=== PATIENT | male | born 1935 | race Caucasian/White ===

== ENCOUNTER 2017-09-22 20:06 | Emergency (ER) | payer SELFPAY ==
[~2017-09-22] VITALS: Ht 177.8 cm; Wt 102.1 kg
[~2017-09-22 20:06] MED LIST: .; AUGMENTIN 875875 MG PO; B12,B-12,B 12500 MC1 PO; BACTRIM 400 MG-1 TAB PO; BACTRIM DS 8001 TA1 PO; BACTRIM DS 8001 TAB PO; BLOOD PRESSURE MED; CIPRO500 MG PO; CIPROFLOXACIN500 MG PO; CLINDAMYCIN300 MG PO; COUMADIN2.5 MG PO; FLOMAX0.4 MG PO; FOLIC ACID1 MG PO; K-DUR 20MEQ20 MEQ PO; KEFLEX500 MG PO; LACTINEX 0.2 MG1 TAB PO; LASIX20 MG PO; LEVAQUIN250 MG PO; LEVOFLOXACIN500 MG PO; LIDEX 0.05% GEL60 GM PO; LIPITOR20 MG PO; LISINOPRIL5 MG PO; LOPRESSOR25 MG PO; MACROBID100 M1 PO; MEDROL DOSEPAK4 MG PO; MYCOLOG CREAM 115 GM TP; NKHM; OYSTER CALCIUM1 TA2 PO; PROTONIX40 MG PO; TAMSULOSIN HYD0.4 MG PO; VICODIN 5/500 505 MG PO; VITAMIN D50000 I3; VOLTAREN GEL1% TP
[2017-09-22 20:12] VITALS: BP 127/64
[2017-09-22 20:21] LABS: BASO # 0.1 10*3/uL (0.0-0.1); BASO % 0.6 % (0.0-1.0); EOS # 0.2 10*3/uL (0.0-0.4); EOS % 1.9 % (1.0-4.0); HEMATOCRIT 46.5 % (42.0-52.0); HEMOGLOBIN 15.3 g/dl (14.0-18.0); LYMPH # 2.3 10*3/uL (1.3-4.4); LYMPH % 28.1 % (27.0-41.0); MEAN CELL VOLUME 95.5 fl (80.0-94.0); MEAN CORPUSCULAR HGB 31.4 pg (27.0-31.0); MEAN CORPUSCULAR HGB CONC 32.9 g/dl (33.0-37.0); MEAN PLATELET VOLUME 10.2 fl (9.6-12.3); MONO # 0.6 10*3/uL (0.1-1.0); MONO % 7.5 % (3.0-9.0); NEUT # 5.1 10*3/uL (2.3-7.9); NEUT % 61.8 % (47.0-73.0); PLATELET COUNT AUTOMATED 231 10*3/uL (130-400); RED BLOOD COUNT 4.87 10*6/uL (4.50-5.90); RED CELL DISTRI WIDTH 13.3 % (0-14.5); WHITE BLOOD COUNT 8.3 10*3/uL (4.8-10.8)
[2017-09-22 20:31] LABS: ACT PARTIAL THROMBO TIME 42.6 SECONDS (20.8-31.5); INTERNATIONAL NORM RATIO 4.1 (2.0-3.5)
[2017-09-22 20:35] LABS: BILIRUBIN 1+ (NEGATIVE); BLOOD 3+ (NEGATIVE); CLARITY TURBID (CLEAR); COLOR RED (YELLOW); GLUCOSE NEGATIVE (NEGATIVE); KETONE 1+ (NEGATIVE)
[2017-09-22 20:36] LABS: LEUKO ESTERASE 1+ (NEGATIVE); NITRITE POSITIVE (NEGATIVE)
[2017-09-22 20:37] LABS: RBC TNTC rbc/hpf (0-2)
[2017-09-22 20:37] LABS: CREATININE 1.39 mg/dL (0.70-1.30); POTASSIUM 4.2 mmol/L (3.5-5.1)
[2017-09-22] MEDS ORDERED: SEPTDS PO (20:43)
[2017-10-14] MEDS ORDERED: MIRALAX POWDER255 G1 PO (04:22)
== END 2017-09-22 21:10 | disposition home or self-care (01) ==
LOC: ED 20:06
PROVIDERS: Student in an Organized Health Care Education/Training Program
DX: N39.0 Urinary tract infection, site not specified (principal); R31.9 Hematuria, unspecified; Z79.899 Other long term (current) drug therapy; Z79.01 Long term (current) use of anticoagulants

== ENCOUNTER 2017-09-28 09:54 | Inpatient (IN) | payer MEDICARE, MEDICAID ==
[~2017-09-28] VITALS: Ht 177.8 cm; Wt 104.3 kg
--- NOTE | ~2017-09-28 | EKG ---
[place], [place] ELECTROCARDIOGRAM REPORT NAME: JOVANNA ROE UNIT #: [id number] ROOM: 409 DOCTOR: KALA DRAFT REPORT BIRTHDATE: [birth year] [facility] Test Date: 2017-09-29 Test Time: 17:58:42 Pat Name: JOVANNA ROE Department: Room: 409 1 Gender: M Tire Sorter: : 1935 Requested By: AUDREY RUBY Order Number: [id number] Reading MD: Ladarius Downey MD Measurements Intervals [place] Rate: 84 P: [place]: QRS: -47 QRSD: 112 T: 61 QT: 394 QTc: 466 Interpretive Statements Atrial fibrillation Left anterior fascicular block Abnormal R-wave progression, late transition Electronically Signed On 10-01-2017 9:28:55 PDT by Ladarius Downey MD CM:EKGRPT:ELECTROCARDIOGRAM REPORT [id number] AUDREY ARMENDARIZ DRAFT REPORT AUDREY RUBY
--- NOTE | ~2017-09-28 | O ---
[place], [place] OPERATIVE NOTE NAME: JOVANNA ROE UNIT #: [id number] ROOM: 409 DOCTOR: JOANIE GARCIAMARIE BIRTHDATE: [birth year] DOS: 10/02/2017 GASTROENDOSCOPIC REPORT An 81 years old patient who has presented with guaiac positivity, epigastric distress on Coumadin and there is concern as to the source of the pathology. PROCEDURE: Today's procedure part of investigation is panendoscopy plus biopsy. PREMEDICATION: Versed and propofol. SCOPE: Olympus forward-viewing gastroscope Q10 video. REPORT: After putting the patient in left lateral position and application of lubricant to the scope, the scope was introduced. Thereafter, under direct visualization, advanced through the length of esophagus. Diffuse ulceration of the esophagus up to cervical esophagus and up esophagogastric junction in intense 4/4+ ulceration diffusely was noticed. 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 [place] for fungal study was also obtained. Gastric pouch was entered. Large volume of bile in the gastric pouch suctioned out, about 400 mL. Duodenal bulb was entered. Large duodenal ulcer was identified as well as duodenitis. Distal esophagus was biopsied. [place] for fungal study obtained. Photographic series done. The patient extubated, tolerated procedure well. IMPRESSION: Intense esophageal ulcers from cervical esophagus to esophagogastric junction in addition to the upper esophageal moniliasis, status post photographic series. PLAN AND DISCUSSION: This patient requires aggressive ulcer therapy for prevention of his reflux. 1. Positioning of his bed, head of the bed to be elevated always at 30 degrees. 2. Slurry Carafate 2 grams 2 hours before meals and at bedtime. 3. Reglan 5 mg daily to improve his gastric emptying. 4. Protonix 40 mg b.i.d. 5. Gaviscon 1 tablet to be chewed on an hour after meals and supportive management. His esophagus in summary was extremely distressed and also the lumen was compromised because of ulcerations and esophageal moniliasis. Therefore, Diflucan 100 mg 2 tablets today and from tomorrow 1 tablet per day for 10 days and no refill is going to be considered to remedy the issues on hand. [place], [place] OPERATIVE NOTE NAME: JOVANNA ROE UNIT #: [id number] ROOM: [facility] DOCTOR: MARIE NAIR MD BIRTHDATE: [birth year] MARIE NAIR MD CM:OPRECORD:OPERATIVE NOTE [id number] MARIE NAIR MD 10/02/17 1437 interface
--- NOTE | ~2017-09-28 | CON ---
[place], [place] REPORT OF CONSULTATION NAME: JOVANNA ROE [facility] #: [id number] UNIT #: [id number] ROOM: 409 DOCTOR: PIERO NAIR MDLITTLE RIVERJOSE ALFREDO BIRTHDATE: [birth year] DOS: 10/02/2017 GASTRO ENDOSCOPIC CONSULTATION REPORT HISTORY OF PRESENT ILLNESS: This is an 81-years old patient who presented with multiple medical issues among, which has been GI bleed, hematemesis, urinary tract infection of greater than 100,000 Citrobacter freundii. A urinalysis, bacteria positive. CBC; white blood cell 9, H and H of 12 and 38, lactic acid 1.2. Comprehensive metabolic panel initially BUN and creatinine 55 and 1.9, dehydrated, was corrected to normal. BUN and creatinine 15 and 0.9 with GFR greater than 60. His CBC differential was followed apparently somewhere along the line, he became DNR. However, we were concerned. We needed to anticoagulative for a cardiac dysrhythmia history. PAST MEDICAL HISTORY: Atrial fibrillation, congestive heart failure, hyperlipidemia, hypertension, peripheral vascular disease, stasis dermatitis of lower extremities, BPH. SOCIAL HISTORY: Smoker, nonalcohol consumer. FAMILY HISTORY: Noncontributory. ALLERGIES: To no known medications. MEDICATIONS: Medication list has been reviewed including warfarin 2.5 mg daily. REVIEW OF SYSTEMS: HEENT: Denies double vision, blurred vision. RESPIRATORY: Denies acute shortness of breath. CARDIOVASCULAR: Denies acute chest pain. DIGESTIVE SYSTEM: Cross abdominal pain, not feeling well in her stomach. PHYSICAL EXAMINATION: VITAL SIGNS: Stable. HEENT: Head normocephalic, nontraumatic. Mouth and buccal mucosa benign, edentulous. NECK: Supple, no thyromegaly, no cervical lymphadenopathy. CHEST: Symmetric anatomy, equal expansion. LUNGS: Decreased breath sounds in general. No wheezes, no rhonchi. HEART: Atrial fibrillation without a rub or murmur. EXTREMITIES: Stasis dermatitis and 2+ pitting edema. NEUROLOGIC: Fully alert and oriented. Gastrointestinal bleed, epigastric distress concern about the esophageal status. Labs have been reviewed. Records have been reviewed. His sonogram of abdomen diffuse hepatic steatosis, no biliary dilation. IMPRESSION: Ruling out esophageal pathology, i.e., carcinoma, i.e., ulcers infection. [place], [place] REPORT OF CONSULTATION NAME: JOVANNA ROE UNIT #: [id number] ROOM: 409 DOCTOR: JOANIE GARCIA,MARIE BIRTHDATE: [birth year] PLAN AND DISCUSSION: We are going to organize an EGD for this gentleman. Other adjunctive diagnoses as outlined in past medical, surgical history. He is in need of Coumadin yet guaiac positivity and concerned and subxiphoid symptomatology. MARIE NAIR MD CM:CONSTR:REPORT OF CONSULTATION 1402 10/23/17 0708 interface
--- NOTE | ~2017-09-28 | PR ---
[place], [place] PROGRESS NOTE [id number] UN[facility] #: [id number] ROOM: 409 DOCTOR: LOURDES ARENAS DPM BIRTHDATE: [birth year] DOS: 09/30/2017 SUBJECTIVE: This patient is seen today for followup of some erythema in his legs. He was admitted for UTI. He also states that his toenails are long and uncomfortable. Denies any calf pain bilaterally. OBJECTIVE: Neurovascular status is unchanged. Pedal pulses are barely palpable. Skin temperature is warm. Skin is thin and shiny. Hair growth is decreased. Mild erythema noted in both lower extremities below the knee with some mild dermatitis. Negative Homans sign is noted. Superficial scaling of skin noted at the lower portion of the anterior legs with no serous drainage, no purulent drainage or malodor. Nails 1 through 5 bilaterally are elongated and thick, brittle and dystrophic with subungual debris present. No open areas noted on the toes. He does have a small area on his left heel without any signs of infection. ASSESSMENT: Onychomycosis 1 through 5 bilaterally with mild peripheral arterial disease and venous insufficiency, stasis dermatitis bilaterally. PLAN: Recommend continuing with the Lac-Hydrin lotion. Continue with compression with Jose wraps and Tubigrip. Manual debridement of mycotic nails 1 through 5 bilaterally in length and thickness to the level of the nail bed to reduce hazards such as infection. Continue with offloading boots for his heels to reduce risk of ulceration and reevaluate his legs tomorrow. Right now, they are stable. LOURDES ARENAS DPM CM:PNTRANS [id number] LOURDES ARENAS DPM 09/30/17 9364 interface
[~2017-09-28 09:54] MED LIST changes: +SEPTDS PO
[2017-09-28 09:55] VITALS: BP 110/59
[2017-09-28 10:47] LABS: BILIRUBIN NEGATIVE (NEGATIVE); BLOOD 1+ (NEGATIVE); COLOR YELLOW (YELLOW); GLUCOSE NEGATIVE (NEGATIVE); KETONE NEGATIVE (NEGATIVE); LEUKO ESTERASE 3+ (NEGATIVE); NITRITE NEGATIVE (NEGATIVE)
[2017-09-28 11:00] LABS: CLARITY SL CLOUDY (CLEAR)
[2017-09-28 11:01] LABS: BACTERIA 1+; WBC 31-40 wbc/hpf (0-5)
[2017-09-28 11:31] LABS: BASO % 0.2 % (0.0-1.0); HEMATOCRIT 38.4 % (42.0-52.0); HEMOGLOBIN 12.9 g/dl (14.0-18.0); LYMPH # 0.8 10*3/uL (1.3-4.4); LYMPH % 8.4 % (27.0-41.0); MEAN CELL VOLUME 92.8 fl (80.0-94.0); MEAN CORPUSCULAR HGB 31.2 pg (27.0-31.0); MEAN CORPUSCULAR HGB CONC 33.6 g/dl (33.0-37.0); MEAN PLATELET VOLUME 10.3 fl (9.6-12.3); MONO # 0.8 10*3/uL (0.1-1.0); MONO % 9.3 % (3.0-9.0); NEUT # 7.4 10*3/uL (2.3-7.9); NEUT % 81.8 % (47.0-73.0); PLATELET COUNT AUTOMATED 202 10*3/uL (130-400); RED BLOOD COUNT 4.14 10*6/uL (4.50-5.90); RED CELL DISTRI WIDTH 13.9 % (0-14.5); WHITE BLOOD COUNT 9.1 10*3/uL (4.8-10.8)
[2017-09-28 11:48] LABS: ALBUMIN 3.1 gm/dl (3.1-4.5); CREATININE 1.98 mg/dL (0.70-1.30); POTASSIUM 4.3 mmol/L (3.5-5.1)
[2017-09-28 12:49] VITALS: BP 98/58
[2017-09-28 13:08] VITALS: BP 107/50
[2017-09-28 14:48] LABS: INTERNATIONAL NORM RATIO 3.6 (2.0-3.5)
[2017-09-28 16:00] VITALS: BP 123/57
[2017-09-28 20:00] VITALS: BP 110/56
[2017-09-29] VITALS: BP 108/49
[2017-09-29 06:11] LABS: BASO % 0.1 % (0.0-1.0); EOS % 0.1 % (1.0-4.0); HEMATOCRIT 38.2 % (42.0-52.0); HEMOGLOBIN 12.5 g/dl (14.0-18.0); LYMPH % 10.7 % (27.0-41.0); MEAN CELL VOLUME 93.4 fl (80.0-94.0); MEAN CORPUSCULAR HGB 30.6 pg (27.0-31.0); MEAN CORPUSCULAR HGB CONC 32.7 g/dl (33.0-37.0); MEAN PLATELET VOLUME 10.2 fl (9.6-12.3); MONO # 0.9 10*3/uL (0.1-1.0); MONO % 9.6 % (3.0-9.0); NEUT % 79.2 % (47.0-73.0); PLATELET COUNT AUTOMATED 228 10*3/uL (130-400); RED BLOOD COUNT 4.09 10*6/uL (4.50-5.90); RED CELL DISTRI WIDTH 14.1 % (0-14.5); WHITE BLOOD COUNT 8.9 10*3/uL (4.8-10.8)
[2017-09-29 06:44] LABS: CHLORIDE 106 mmol/L (98-107); CHOLESTEROL 78 mg/dL (<200); CREATININE 1.37 mg/dL (0.70-1.30); HDL CHOLESTEROL 26 mg/dl (40-60); LDL CHOLESTEROL 36 mg/dL (9-159); POTASSIUM 4.5 mmol/L (3.5-5.1); SODIUM 139 mmol/L (136-145); TRIGLYCERIDES 79 mg/dl (<150); VLDL CHOLESTEROL 16 mg/dL (6-40)
[2017-09-29 07:02] LABS: BUN 35 mg/dl (7-24)
[2017-09-29 07:17] LABS: ACT PARTIAL THROMBO TIME 36.6 SECONDS (20.8-31.5); INTERNATIONAL NORM RATIO 3.3 (2.0-3.5)
[2017-09-29 07:29] LABS: VITAMIN D, 25-HYDROXY 28.5 ng/mL (30-100)
[2017-09-29 08:00] VITALS: BP 154/74
[2017-09-29 12:00] VITALS: BP 156/64
[2017-09-29 16:00] VITALS: BP 144/68
[2017-09-29 17:00] LABS: BASO % 0.1 % (0.0-1.0); EOS % 0.1 % (1.0-4.0); HEMATOCRIT 41.5 % (42.0-52.0); HEMOGLOBIN 13.6 g/dl (14.0-18.0); LYMPH # 0.7 10*3/uL (1.3-4.4); LYMPH % 6.9 % (27.0-41.0); MEAN CELL VOLUME 94.5 fl (80.0-94.0); MEAN CORPUSCULAR HGB CONC 32.8 g/dl (33.0-37.0); MEAN PLATELET VOLUME 9.7 fl (9.6-12.3); MONO # 0.8 10*3/uL (0.1-1.0); MONO % 7.8 % (3.0-9.0); NEUT # 8.8 10*3/uL (2.3-7.9); NEUT % 84.6 % (47.0-73.0); PLATELET COUNT AUTOMATED 229 10*3/uL (130-400); RED BLOOD COUNT 4.39 10*6/uL (4.50-5.90); WHITE BLOOD COUNT 10.4 10*3/uL (4.8-10.8)
[2017-09-29 20:00] VITALS: BP 130/59
[2017-09-30] VITALS: BP 142/74
[2017-09-30 06:37] LABS: BASO % 0.1 % (0.0-1.0); EOS % 0.1 % (1.0-4.0); HEMOGLOBIN 12.9 g/dl (14.0-18.0); LYMPH # 0.9 10*3/uL (1.3-4.4); LYMPH % 9.4 % (27.0-41.0); MEAN CELL VOLUME 94.8 fl (80.0-94.0); MEAN CORPUSCULAR HGB 30.6 pg (27.0-31.0); MEAN CORPUSCULAR HGB CONC 32.3 g/dl (33.0-37.0); MEAN PLATELET VOLUME 9.8 fl (9.6-12.3); MONO % 9.7 % (3.0-9.0); NEUT # 7.9 10*3/uL (2.3-7.9); NEUT % 80.3 % (47.0-73.0); PLATELET COUNT AUTOMATED 273 10*3/uL (130-400); RED BLOOD COUNT 4.22 10*6/uL (4.50-5.90); RED CELL DISTRI WIDTH 14.1 % (0-14.5); WHITE BLOOD COUNT 9.9 10*3/uL (4.8-10.8)
[2017-09-30 06:49] LABS: BUN 27 mg/dl (7-24); CHLORIDE 109 mmol/L (98-107); POTASSIUM 4.5 mmol/L (3.5-5.1); SODIUM 143 mmol/L (136-145)
[2017-09-30 07:19] LABS: INTERNATIONAL NORM RATIO 1.8 (2.0-3.5)
[2017-09-30 08:00] VITALS: BP 130/58
[2017-09-30 12:00] VITALS: BP 104/60
[2017-09-30 14:30] LABS: BASO % 0.1 % (0.0-1.0); HEMATOCRIT 39.8 % (42.0-52.0); HEMOGLOBIN 13.1 g/dl (14.0-18.0); LYMPH # 1.1 10*3/uL (1.3-4.4); LYMPH % 12.4 % (27.0-41.0); MEAN CELL VOLUME 95.2 fl (80.0-94.0); MEAN CORPUSCULAR HGB 31.3 pg (27.0-31.0); MEAN CORPUSCULAR HGB CONC 32.9 g/dl (33.0-37.0); MONO # 0.7 10*3/uL (0.1-1.0); NEUT # 6.9 10*3/uL (2.3-7.9); NEUT % 78.9 % (47.0-73.0); PLATELET COUNT AUTOMATED 268 10*3/uL (130-400); RED BLOOD COUNT 4.18 10*6/uL (4.50-5.90); RED CELL DISTRI WIDTH 14.1 % (0-14.5); WHITE BLOOD COUNT 8.8 10*3/uL (4.8-10.8)
[2017-09-30 16:00] VITALS: BP 133/56
[2017-09-30 20:00] VITALS: BP 137/65
[2017-10-01] VITALS: BP 126/73
[2017-10-01 06:24] LABS: BASO % 0.3 % (0.0-1.0); HEMATOCRIT 38.3 % (42.0-52.0); HEMOGLOBIN 12.3 g/dl (14.0-18.0); LYMPH % 12.7 % (27.0-41.0); MEAN CELL VOLUME 96.2 fl (80.0-94.0); MEAN CORPUSCULAR HGB 30.9 pg (27.0-31.0); MEAN CORPUSCULAR HGB CONC 32.1 g/dl (33.0-37.0); MEAN PLATELET VOLUME 9.7 fl (9.6-12.3); MONO % 12.8 % (3.0-9.0); NEUT # 5.8 10*3/uL (2.3-7.9); NEUT % 73.6 % (47.0-73.0); PLATELET COUNT AUTOMATED 272 10*3/uL (130-400); RED BLOOD COUNT 3.98 10*6/uL (4.50-5.90); RED CELL DISTRI WIDTH 13.8 % (0-14.5); WHITE BLOOD COUNT 7.8 10*3/uL (4.8-10.8)
[2017-10-01 08:00] VITALS: BP 141/75
[2017-10-01 08:34] LABS: ALBUMIN 2.8 gm/dl (3.1-4.5); ALKALINE PHOSPHATASE 83 U/L (45-117); BUN 20 mg/dl (7-24); CHLORIDE 110 mmol/L (98-107); CREATININE 0.97 mg/dL (0.70-1.30); POTASSIUM 4.3 mmol/L (3.5-5.1); SGOT/AST 30 IU/L (3-35); SGPT/ALT 57 U/L (12-78); SODIUM 142 mmol/L (136-145); TOTAL PROTEIN 6.5 gm/dL (6.4-8.2)
[2017-10-01 12:00] VITALS: BP 138/63
[2017-10-01 16:00] VITALS: BP 139/54
[2017-10-01 20:00] VITALS: BP 120/55
[2017-10-02] VITALS: BP 122/75
[2017-10-02 06:15] LABS: BASO % 0.4 % (0.0-1.0); HEMATOCRIT 37.1 % (42.0-52.0); HEMOGLOBIN 12.2 g/dl (14.0-18.0); LYMPH % 13.2 % (27.0-41.0); MEAN CELL VOLUME 94.4 fl (80.0-94.0); MEAN CORPUSCULAR HGB CONC 32.9 g/dl (33.0-37.0); MEAN PLATELET VOLUME 9.2 fl (9.6-12.3); MONO # 0.9 10*3/uL (0.1-1.0); NEUT # 5.6 10*3/uL (2.3-7.9); NEUT % 73.4 % (47.0-73.0); PLATELET COUNT AUTOMATED 285 10*3/uL (130-400); RED BLOOD COUNT 3.93 10*6/uL (4.50-5.90); RED CELL DISTRI WIDTH 13.6 % (0-14.5); WHITE BLOOD COUNT 7.7 10*3/uL (4.8-10.8)
[2017-10-02 06:38] LABS: ALBUMIN 2.6 gm/dl (3.1-4.5); ALKALINE PHOSPHATASE 74 U/L (45-117); BUN 15 mg/dl (7-24); CHLORIDE 108 mmol/L (98-107); CREATININE 0.97 mg/dL (0.70-1.30); POTASSIUM 3.9 mmol/L (3.5-5.1); SGOT/AST 27 IU/L (3-35); SGPT/ALT 53 U/L (12-78); SODIUM 141 mmol/L (136-145); TOTAL PROTEIN 6.3 gm/dL (6.4-8.2)
[2017-10-02 08:00] VITALS: BP 142/78
[2017-10-02 12:30] VITALS: BP 151/65
[2017-10-02 13:50] VITALS: BP 112/55
[2017-10-02 14:05] VITALS: BP 123/68
[2017-10-02 14:20] VITALS: BP 113/69
[2017-10-02] MEDS ORDERED: PROTONIX40 MG PO (14:33)
[2017-10-02] MEDS ORDERED: VITAMIN D-32000 UNIT PO (14:33)
[2017-10-02] MEDS ORDERED: GERI-HYDROLAC222 ML T (14:33)
[2017-10-02] MEDS ORDERED: GAVISCON 80-141 EACH PO (14:33)
[2017-10-02] MEDS ORDERED: REGLAN5 MG PO (14:33)
[2017-10-02] MEDS ORDERED: FLOMAX0.4 MG PO (14:33)
[2017-10-02] MEDS ORDERED: FLUCONAZOLE100 MG PO (14:33)
[2017-10-02] MEDS ORDERED: CARAFATE1 GM/10 ML PO (14:33)
[2017-10-02] MEDS ORDERED: NATURE'S BLEND F1 MG PO (14:33)
[2017-10-02] MEDS ORDERED: CEFUROXIME AXE500 MG PO (14:35)
[2017-10-02] MEDS ORDERED: HYDROCODONE-AC1 EAC1 PO (14:36)
[2017-10-11 10:14] LABS: HEPATITIS B SURFACE AG Negative (Negative); HEPATITIS C VIRUS ANTIBODY <0.1 s/co (0.0-0.9)
[2017-10-14] MEDS ORDERED: MIRALAX POWDER255 G1 PO (04:22)
== END 2017-10-02 16:30 | disposition other institution (70) | DRG 689 ==
LOC: ED 09:54 → 4E 12:20 → EDHOLD 12:20 → 4E 12:29
PROVIDERS: Internal Medicine; Internal Medicine Gastroenterology; Nurse Practitioner Family; Registered Nurse
PROC: 0HBRXZZ Excision of Toe Nail, External Approach (ICD-10-PCS; principal; 2017-09-30)
PROC: 0DB38ZX Excision of Lower Esophagus, Via Natural or Artificial Opening Endoscopic, Diagnostic (ICD-10-PCS; 2017-10-02)
DX: N30.01 Acute cystitis with hematuria (principal); N17.0 Acute kidney failure with tubular necrosis; L89.322 Pressure ulcer of left buttock, stage 2; E44.0 Moderate protein-calorie malnutrition; B37.81 Candidal esophagitis; I11.0 Hypertensive heart disease with heart failure; I50.9 Heart failure, unspecified; E87.8 Other disorders of electrolyte and fluid balance, not elsewhere classified; E87.1 Hypo-osmolality and hyponatremia; K22.10 Ulcer of esophagus without bleeding; I48.2 Chronic atrial fibrillation; L89.611 Pressure ulcer of right heel, stage 1; E78.5 Hyperlipidemia, unspecified; I73.9 Peripheral vascular disease, unspecified; K29.80 Duodenitis without bleeding; K29.70 Gastritis, unspecified, without bleeding; M17.11 Unilateral primary osteoarthritis, right knee; N40.1 Benign prostatic hyperplasia with lower urinary tract symptoms; R33.8 Other retention of urine; L89.891 Pressure ulcer of other site, stage 1; Z66 Do not resuscitate; Z51.5 Encounter for palliative care; D64.9 Anemia, unspecified; R73.9 Hyperglycemia, unspecified; R74.0 Nonspecific elevation of levels of transaminase and lactic acid dehydrogenase [LDH]; I87.2 Venous insufficiency (chronic) (peripheral); B35.1 Tinea unguium; E66.9 Obesity, unspecified; Z72.0 Tobacco use; Z71.6 Tobacco abuse counseling; Z79.01 Long term (current) use of anticoagulants; Z83.6 Family history of other diseases of the respiratory system; Z80.9 Family history of malignant neoplasm, unspecified; Z79.899 Other long term (current) drug therapy; Z68.32 Body mass index [BMI] 32.0-32.9, adult

== ENCOUNTER → 2017-12-20 | Outpatient (CLI) | payer MEDICARE, MEDICAID ==
[~2017-12-20] MED LIST changes: +CARAFATE1 GM/10 ML PO; +CEFUROXIME AXE500 MG PO; +FLUCONAZOLE100 MG PO; +GAVISCON 80-141 EACH PO; +GERI-HYDROLAC222 ML T; +HYDROCODONE-AC1 EAC1 PO; +MIRALAX POWDER255 G1 PO; +NATURE'S BLEND F1 MG PO; +REGLAN5 MG PO; +VITAMIN D-32000 UNIT PO
== END | disposition home or self-care (01) ==
LOC: WOUNDCARE 12-19 13:49
DX: I87.311 Chronic venous hypertension (idiopathic) with ulcer of right lower extremity (principal); L97.811 Non-pressure chronic ulcer of other part of right lower leg limited to breakdown of skin; I73.9 Peripheral vascular disease, unspecified; I10 Essential (primary) hypertension; I48.91 Unspecified atrial fibrillation; J44.9 Chronic obstructive pulmonary disease, unspecified; E78.5 Hyperlipidemia, unspecified; M19.90 Unspecified osteoarthritis, unspecified site; F17.290 Nicotine dependence, other tobacco product, uncomplicated

== ENCOUNTER → 2018-01-01 | Outpatient (CLI) | payer MEDICARE, MEDICAID | END | disposition home or self-care (01) | LOC: US 13:12 | DX: I73.9 Peripheral vascular disease, unspecified (principal) ==

== ENCOUNTER → 2018-01-03 | Outpatient (CLI) | payer MEDICARE, MEDICAID | END | disposition home or self-care (01) | LOC: WOUNDCARE | DX: I87.311 Chronic venous hypertension (idiopathic) with ulcer of right lower extremity (principal); L97.811 Non-pressure chronic ulcer of other part of right lower leg limited to breakdown of skin; I73.9 Peripheral vascular disease, unspecified; I48.91 Unspecified atrial fibrillation; J44.9 Chronic obstructive pulmonary disease, unspecified; E78.5 Hyperlipidemia, unspecified; M19.90 Unspecified osteoarthritis, unspecified site; F17.290 Nicotine dependence, other tobacco product, uncomplicated ==

== ENCOUNTER 2018-01-20 10:27 | Emergency (ER) | payer MEDICARE, OTHER ==
[~2018-01-20] VITALS: Ht 177.8 cm; Wt 102.1 kg
[2018-01-20 10:29] VITALS: BP 147/55
[2018-01-20 11:55] LABS: BASO % 0.5 % (0.0-1.0); EOS # 0.2 10*3/uL (0.0-0.4); EOS % 1.9 % (1.0-4.0); HEMATOCRIT 40.8 % (42.0-52.0); HEMOGLOBIN 13.4 g/dl (14.0-18.0); LYMPH # 1.2 10*3/uL (1.3-4.4); LYMPH % 15.1 % (27.0-41.0); MEAN CELL VOLUME 94.2 fl (80.0-94.0); MEAN CORPUSCULAR HGB 30.9 pg (27.0-31.0); MEAN CORPUSCULAR HGB CONC 32.8 g/dl (33.0-37.0); MEAN PLATELET VOLUME 9.6 fl (9.6-12.3); MONO # 0.8 10*3/uL (0.1-1.0); MONO % 9.1 % (3.0-9.0); NEUT % 73.2 % (47.0-73.0); PLATELET COUNT AUTOMATED 240 10*3/uL (130-400); RED BLOOD COUNT 4.33 10*6/uL (4.50-5.90); RED CELL DISTRI WIDTH 16.1 % (0-14.5); WHITE BLOOD COUNT 8.2 10*3/uL (4.8-10.8)
[2018-01-20 12:03] LABS: ACT PARTIAL THROMBO TIME 28.4 SECONDS (20.8-31.5); INTERNATIONAL NORM RATIO 1.8 (2.0-3.5)
[2018-01-20 12:10] LABS: ALBUMIN 3.6 gm/dl (3.1-4.5); CREATININE 1.41 mg/dL (0.70-1.30); POTASSIUM 4.4 mmol/L (3.5-5.1)
[2018-01-20 12:46] LABS: BILIRUBIN NEGATIVE (NEGATIVE); BLOOD 3+ (NEGATIVE); CLARITY TURBID (CLEAR); COLOR YELLOW (YELLOW); GLUCOSE NEGATIVE (NEGATIVE); KETONE NEGATIVE (NEGATIVE); LEUKO ESTERASE 3+ (NEGATIVE); NITRITE NEGATIVE (NEGATIVE); PH >= 9.0 (5.0-9.0); SPECIFIC GRAVITY <= 1.005 (1.005-1.030); UROBILINOGEN 0.2 E.U./dl (0.2-1.0)
[2018-01-20 13:29] LABS: BACTERIA 3+; EPITHELIAL CELLS 0-2
[2018-01-20 13:30] LABS: TRIP PHOS CRYSTALS 3+
== END 2018-01-20 14:05 | disposition home or self-care (01) ==
LOC: ED 10:27
PROVIDERS: Emergency Medicine
DX: T83.038D Leakage of other urinary catheter, subsequent encounter (principal); I11.0 Hypertensive heart disease with heart failure; I50.9 Heart failure, unspecified; I48.2 Chronic atrial fibrillation; E78.5 Hyperlipidemia, unspecified; E66.9 Obesity, unspecified; I73.9 Peripheral vascular disease, unspecified; Z68.30 Body mass index [BMI] 30.0-30.9, adult; F17.200 Nicotine dependence, unspecified, uncomplicated; Z79.899 Other long term (current) drug therapy

== ENCOUNTER 2018-02-05 14:45 | Emergency (ER) | payer MEDICARE, OTHER ==
[~2018-02-05] VITALS: Ht 177.8 cm; Wt 102.1 kg
[2018-02-05 14:47] VITALS: BP 133/58
== END 2018-02-05 15:24 | disposition home or self-care (01) ==
LOC: ED 14:45
DX: T83.098A Other mechanical complication of other urinary catheter, initial encounter (principal); I11.0 Hypertensive heart disease with heart failure; I50.9 Heart failure, unspecified; E78.5 Hyperlipidemia, unspecified; E66.9 Obesity, unspecified; I48.2 Chronic atrial fibrillation; Z68.34 Body mass index [BMI] 34.0-34.9, adult; Z79.899 Other long term (current) drug therapy

== ENCOUNTER → 2018-02-11 | Outpatient (CLI) | payer MEDICARE, OTHER | END | disposition home or self-care (01) | LOC: WOUNDCARE 01:25 | DX: I87.311 Chronic venous hypertension (idiopathic) with ulcer of right lower extremity (principal); L97.811 Non-pressure chronic ulcer of other part of right lower leg limited to breakdown of skin; I73.9 Peripheral vascular disease, unspecified; I48.91 Unspecified atrial fibrillation; E78.5 Hyperlipidemia, unspecified; J44.9 Chronic obstructive pulmonary disease, unspecified; M19.90 Unspecified osteoarthritis, unspecified site; F17.290 Nicotine dependence, other tobacco product, uncomplicated ==

== ENCOUNTER → 2018-02-18 | Outpatient (CLI) | payer MEDICARE, OTHER | END | disposition home or self-care (01) | LOC: WOUNDCARE 04:26 | DX: I87.311 Chronic venous hypertension (idiopathic) with ulcer of right lower extremity (principal); L97.811 Non-pressure chronic ulcer of other part of right lower leg limited to breakdown of skin; I73.9 Peripheral vascular disease, unspecified; I48.91 Unspecified atrial fibrillation; J44.9 Chronic obstructive pulmonary disease, unspecified; E78.5 Hyperlipidemia, unspecified; M19.90 Unspecified osteoarthritis, unspecified site; F17.290 Nicotine dependence, other tobacco product, uncomplicated ==

== ENCOUNTER 2018-02-21 16:56 | Emergency (ER) | payer MEDICARE, OTHER ==
[~2018-02-21] VITALS: Ht 177.8 cm; Wt 102.1 kg
== END 2018-02-21 18:10 | disposition home or self-care (01) ==
LOC: ED 16:56
DX: T83.038A Leakage of other urinary catheter, initial encounter (principal); I48.2 Chronic atrial fibrillation; E78.5 Hyperlipidemia, unspecified; E66.9 Obesity, unspecified; I11.0 Hypertensive heart disease with heart failure; I50.9 Heart failure, unspecified; F17.200 Nicotine dependence, unspecified, uncomplicated; Z68.30 Body mass index [BMI] 30.0-30.9, adult; Z79.2 Long term (current) use of antibiotics; Z79.899 Other long term (current) drug therapy

== ENCOUNTER → 2018-02-25 | Outpatient (CLI) | payer MEDICARE, OTHER | END | disposition home or self-care (01) | LOC: WOUNDCARE 03:19 | DX: I87.311 Chronic venous hypertension (idiopathic) with ulcer of right lower extremity (principal); L97.811 Non-pressure chronic ulcer of other part of right lower leg limited to breakdown of skin; I73.9 Peripheral vascular disease, unspecified; I48.91 Unspecified atrial fibrillation; J44.9 Chronic obstructive pulmonary disease, unspecified; E78.5 Hyperlipidemia, unspecified; M19.90 Unspecified osteoarthritis, unspecified site; F17.290 Nicotine dependence, other tobacco product, uncomplicated ==

== ENCOUNTER 2018-03-15 14:11 | Emergency (ER) | payer MEDICARE, OTHER ==
[~2018-03-15] VITALS: Ht 177.8 cm; Wt 102.1 kg
[2018-03-15 14:14] VITALS: BP 142/78
[2018-03-15 15:16] LABS: BILIRUBIN NEGATIVE (NEGATIVE); BLOOD 1+ (NEGATIVE); CLARITY SL CLOUDY (CLEAR); COLOR YELLOW (YELLOW); GLUCOSE NEGATIVE (NEGATIVE); KETONE NEGATIVE (NEGATIVE); LEUKO ESTERASE 2+ (NEGATIVE); NITRITE POSITIVE (NEGATIVE); SPECIFIC GRAVITY 1.015 (1.005-1.030); UROBILINOGEN 0.2 E.U./dl (0.2-1.0)
[2018-03-15 15:30] LABS: BACTERIA 4+; EPITHELIAL CELLS 0-2; WBC 21-30 wbc/hpf (0-5)
[2018-03-15] MEDS ORDERED: CEPHALEXIN500 M1 PO (15:34)
[2018-05-13] MEDS ORDERED: CEPHALEXIN500 M1 PO (23:38)
== END 2018-03-15 15:55 | disposition home or self-care (01) ==
LOC: ED 14:11
PROVIDERS: Nurse Practitioner Family
DX: T83.098A Other mechanical complication of other urinary catheter, initial encounter (principal); N39.0 Urinary tract infection, site not specified; I11.0 Hypertensive heart disease with heart failure; I50.9 Heart failure, unspecified; I48.91 Unspecified atrial fibrillation; Z79.899 Other long term (current) drug therapy; Y92.89 Other specified places as the place of occurrence of the external cause

== ENCOUNTER → 2018-03-26 | Outpatient (CLI) | payer MEDICARE, OTHER ==
[~2018-03-26] MED LIST changes: +CEPHALEXIN500 M1 PO
== END | disposition home or self-care (01) ==
LOC: WOUNDCARE 05:05
DX: I87.311 Chronic venous hypertension (idiopathic) with ulcer of right lower extremity (principal); L97.811 Non-pressure chronic ulcer of other part of right lower leg limited to breakdown of skin; I73.9 Peripheral vascular disease, unspecified; I87.8 Other specified disorders of veins; I48.91 Unspecified atrial fibrillation; J44.9 Chronic obstructive pulmonary disease, unspecified; E78.5 Hyperlipidemia, unspecified; M19.90 Unspecified osteoarthritis, unspecified site; F17.290 Nicotine dependence, other tobacco product, uncomplicated

== ENCOUNTER 2018-04-20 22:03 | Emergency (ER) | payer MEDICARE, OTHER ==
[~2018-04-20] VITALS: Ht 177.8 cm; Wt 102.1 kg
[2018-04-20 22:04] VITALS: BP 163/91
[2018-05-13] MEDS ORDERED: CEPHALEXIN500 M1 PO (23:38)
[2018-06-07] MEDS ORDERED: CEPHALEXIN500 M1 PO (21:47)
[2018-07-25] MEDS ORDERED: OXYBUTYNIN5 MG PO (08:56)
[2018-08-10] MEDS ORDERED: B-121000 MCG PO (02:01)
[2018-08-10] MEDS ORDERED: LASIX20 MG PO (02:02)
[2018-08-10] MEDS ORDERED: COUMADIN2.5 M1 PO (02:07)
[2018-08-13] MEDS ORDERED: DOXYCYCLINE MO100 M1 PO (10:37)
[2018-08-13] MEDS ORDERED: KEFLEX 500 MG E2 CAP PO (10:37)
== END 2018-04-20 22:22 | disposition home or self-care (01) ==
LOC: ED 22:03
DX: T83.038A Leakage of other urinary catheter, initial encounter (principal); Z79.899 Other long term (current) drug therapy

== ENCOUNTER 2018-04-26 14:06 | Emergency (ER) | payer MEDICARE, OTHER ==
[~2018-04-26] VITALS: Ht 177.8 cm; Wt 102.1 kg
[2018-04-26 14:10] VITALS: BP 146/55
[2018-05-13] MEDS ORDERED: CEPHALEXIN500 M1 PO (23:38)
[2018-06-07] MEDS ORDERED: CEPHALEXIN500 M1 PO (21:47)
[2018-07-25] MEDS ORDERED: OXYBUTYNIN5 MG PO (08:56)
[2018-08-10] MEDS ORDERED: B-121000 MCG PO (02:01)
[2018-08-10] MEDS ORDERED: LASIX20 MG PO (02:02)
[2018-08-10] MEDS ORDERED: COUMADIN2.5 M1 PO (02:07)
[2018-08-13] MEDS ORDERED: DOXYCYCLINE MO100 M1 PO (10:37)
[2018-08-13] MEDS ORDERED: KEFLEX 500 MG E2 CAP PO (10:37)
== END 2018-04-26 14:19 | disposition home or self-care (01) ==
LOC: ED 14:06
DX: Z48.01 Encounter for change or removal of surgical wound dressing (principal); I11.0 Hypertensive heart disease with heart failure; I50.9 Heart failure, unspecified; I48.91 Unspecified atrial fibrillation; E78.5 Hyperlipidemia, unspecified; E66.9 Obesity, unspecified; I73.9 Peripheral vascular disease, unspecified; F17.200 Nicotine dependence, unspecified, uncomplicated; Z79.2 Long term (current) use of antibiotics; Z79.899 Other long term (current) drug therapy

== ENCOUNTER 2018-05-14 13:59 | Emergency (ER) | payer MEDICARE, OTHER ==
[2018-05-14 14:00] VITALS: BP 95/40
[2018-06-07] MEDS ORDERED: CEPHALEXIN500 M1 PO (21:47)
[2018-07-25] MEDS ORDERED: OXYBUTYNIN5 MG PO (08:56)
[2018-08-10] MEDS ORDERED: B-121000 MCG PO (02:01)
[2018-08-10] MEDS ORDERED: LASIX20 MG PO (02:02)
[2018-08-10] MEDS ORDERED: COUMADIN2.5 M1 PO (02:07)
[2018-08-13] MEDS ORDERED: KEFLEX 500 MG E2 CAP PO (10:37)
[2018-08-13] MEDS ORDERED: DOXYCYCLINE MO100 M1 PO (10:37)
== END 2018-05-14 14:52 | disposition home or self-care (01) ==
LOC: ED 13:59
DX: T83.038A Leakage of other urinary catheter, initial encounter (principal); F17.200 Nicotine dependence, unspecified, uncomplicated; Z79.899 Other long term (current) drug therapy; Z79.2 Long term (current) use of antibiotics

== ENCOUNTER → 2018-05-29 | Outpatient (CLI) | payer MEDICARE, OTHER ==
[~2018-05-29] MED LIST changes: +B-121000 MCG PO; +CEFUROXIME AXE250 MG PO; +COUMADIN2.5 M1 PO; +DOXYCYCLINE MO100 M1 PO; +KEFLEX 500 MG E2 CAP PO; +OXYBUTYNIN5 MG PO
== END | disposition home or self-care (01) ==
LOC: WOUNDCARE 11:27
DX: L97.811 Non-pressure chronic ulcer of other part of right lower leg limited to breakdown of skin (principal); L97.821 Non-pressure chronic ulcer of other part of left lower leg limited to breakdown of skin; I73.9 Peripheral vascular disease, unspecified; I10 Essential (primary) hypertension; I48.91 Unspecified atrial fibrillation; J44.9 Chronic obstructive pulmonary disease, unspecified; E78.5 Hyperlipidemia, unspecified; M19.90 Unspecified osteoarthritis, unspecified site; I87.8 Other specified disorders of veins; N40.0 Benign prostatic hyperplasia without lower urinary tract symptoms; F17.290 Nicotine dependence, other tobacco product, uncomplicated

== ENCOUNTER → 2018-06-25 | Outpatient (CLI) | payer MEDICARE, OTHER | END | disposition home or self-care (01) | LOC: WOUNDCARE 09:55 | DX: L97.311 Non-pressure chronic ulcer of right ankle limited to breakdown of skin (principal); L97.821 Non-pressure chronic ulcer of other part of left lower leg limited to breakdown of skin; L97.811 Non-pressure chronic ulcer of other part of right lower leg limited to breakdown of skin; I73.9 Peripheral vascular disease, unspecified; N40.0 Benign prostatic hyperplasia without lower urinary tract symptoms; I10 Essential (primary) hypertension; I48.91 Unspecified atrial fibrillation; J44.9 Chronic obstructive pulmonary disease, unspecified; E78.5 Hyperlipidemia, unspecified; M19.90 Unspecified osteoarthritis, unspecified site; F17.290 Nicotine dependence, other tobacco product, uncomplicated ==

== ENCOUNTER → 2018-07-02 | Outpatient (CLI) | payer MEDICARE, OTHER | END | disposition home or self-care (01) | LOC: WOUNDCARE 03:06 | DX: L97.318 Non-pressure chronic ulcer of right ankle with other specified severity (principal); L97.821 Non-pressure chronic ulcer of other part of left lower leg limited to breakdown of skin; I10 Essential (primary) hypertension; I73.9 Peripheral vascular disease, unspecified; I48.91 Unspecified atrial fibrillation; J44.9 Chronic obstructive pulmonary disease, unspecified; E78.5 Hyperlipidemia, unspecified; M19.90 Unspecified osteoarthritis, unspecified site; N40.0 Benign prostatic hyperplasia without lower urinary tract symptoms; F17.290 Nicotine dependence, other tobacco product, uncomplicated ==

== ENCOUNTER 2018-07-03 19:33 | Emergency (ER) | payer MEDICARE, OTHER ==
[~2018-07-03] VITALS: Ht 177.8 cm; Wt 102.1 kg
[~2018-07-03 19:33] MED LIST changes: -B-121000 MCG PO; -CEFUROXIME AXE250 MG PO; -COUMADIN2.5 M1 PO; -DOXYCYCLINE MO100 M1 PO; -KEFLEX 500 MG E2 CAP PO; -OXYBUTYNIN5 MG PO
[2018-07-03 19:38] VITALS: BP 122/43
[2018-07-03 20:32] LABS: BILIRUBIN NEGATIVE (NEGATIVE); BLOOD 3+ (NEGATIVE); CLARITY SL CLOUDY (CLEAR); COLOR YELLOW (YELLOW); GLUCOSE NEGATIVE (NEGATIVE); KETONE NEGATIVE (NEGATIVE); LEUKO ESTERASE 3+ (NEGATIVE); NITRITE POSITIVE (NEGATIVE); SPECIFIC GRAVITY 1.015 (1.005-1.030); UROBILINOGEN 0.2 E.U./dl (0.2-1.0)
[2018-07-03 20:40] LABS: BACTERIA 2+; RBC TNTC rbc/hpf (0-2); WBC TNTC wbc/hpf (0-5)
[2018-07-03] MEDS ORDERED: CEFUROXIME AXE250 MG PO (21:28)
[2018-07-25] MEDS ORDERED: OXYBUTYNIN5 MG PO (08:56)
[2018-08-10] MEDS ORDERED: B-121000 MCG PO (02:01)
[2018-08-10] MEDS ORDERED: LASIX20 MG PO (02:02)
[2018-08-10] MEDS ORDERED: COUMADIN2.5 M1 PO (02:07)
[2018-08-13] MEDS ORDERED: KEFLEX 500 MG E2 CAP PO (10:37)
[2018-08-13] MEDS ORDERED: DOXYCYCLINE MO100 M1 PO (10:37)
== END 2018-07-03 21:57 | disposition home or self-care (01) ==
LOC: ED 19:33
PROVIDERS: Nurse Practitioner Family
DX: T83.038A Leakage of other urinary catheter, initial encounter (principal); N39.0 Urinary tract infection, site not specified; I11.0 Hypertensive heart disease with heart failure; I50.9 Heart failure, unspecified; I48.91 Unspecified atrial fibrillation; N40.0 Benign prostatic hyperplasia without lower urinary tract symptoms; F17.200 Nicotine dependence, unspecified, uncomplicated; Z79.899 Other long term (current) drug therapy; Y92.89 Other specified places as the place of occurrence of the external cause

== ENCOUNTER → 2018-08-01 | Outpatient (CLI) | payer MEDICARE, OTHER ==
[~2018-08-01] MED LIST changes: +B-121000 MCG PO; +CEFUROXIME AXE250 MG PO; +COUMADIN2.5 M1 PO; +DOXYCYCLINE MO100 M1 PO; +KEFLEX 500 MG E2 CAP PO; +OXYBUTYNIN5 MG PO
[2018-08-01 13:55] LABS: BILIRUBIN NEGATIVE (NEGATIVE); BLOOD 1+ (NEGATIVE); CLARITY CLEAR (CLEAR); COLOR YELLOW (YELLOW); GLUCOSE NEGATIVE (NEGATIVE); KETONE NEGATIVE (NEGATIVE); LEUKO ESTERASE 3+ (NEGATIVE); NITRITE NEGATIVE (NEGATIVE); PH 7.5 (5.0-9.0); SPECIFIC GRAVITY <= 1.005 (1.005-1.030); UROBILINOGEN 0.2 E.U./dl (0.2-1.0)
[2018-08-01 14:27] LABS: BACTERIA TRACE; WBC 0-2 wbc/hpf (0-5)
[2018-08-01 14:35] LABS: ALBUMIN 3.8 gm/dl (3.1-4.5); CREATININE 1.45 mg/dL (0.70-1.30); TOTAL PROTEIN 8.1 gm/dL (6.4-8.2)
[2018-08-01 15:12] LABS: BASO # 0.1 10*3/uL (0.0-0.1); BASO % 1.2 % (0.0-1.0); EOS # 0.3 10*3/uL (0.0-0.4); EOS % 4.8 % (1.0-4.0); HEMOGLOBIN 13.9 g/dl (14.0-18.0); LYMPH # 1.6 10*3/uL (1.3-4.4); MEAN CELL VOLUME 94.7 fl (80.0-94.0); MEAN CORPUSCULAR HGB 30.6 pg (27.0-31.0); MEAN CORPUSCULAR HGB CONC 32.3 g/dl (33.0-37.0); MEAN PLATELET VOLUME 10.3 fl (9.6-12.3); MONO # 0.6 10*3/uL (0.1-1.0); MONO % 9.7 % (3.0-9.0); NEUT # 3.2 10*3/uL (2.3-7.9); NEUT % 56.1 % (47.0-73.0); PLATELET COUNT AUTOMATED 258 10*3/uL (130-400); RED BLOOD COUNT 4.54 10*6/uL (4.50-5.90); RED CELL DISTRI WIDTH 13.8 % (0-14.5); WHITE BLOOD COUNT 5.7 10*3/uL (4.8-10.8)
== END | disposition home or self-care (01) ==
LOC: LAB 13:06 → US 13:30
PROVIDERS: Nurse Practitioner Family
DX: Z12.5 Encounter for screening for malignant neoplasm of prostate (principal); N28.1 Cyst of kidney, acquired; I10 Essential (primary) hypertension; N19 Unspecified kidney failure; N30.10 Interstitial cystitis (chronic) without hematuria

== ENCOUNTER 2018-08-16 18:57 | Emergency (ER) | payer MEDICARE, OTHER ==
[~2018-08-16] VITALS: Wt 124.7 kg
[2018-08-16 18:57] VITALS: BP 130/106
[2018-08-16 19:26] LABS: BILIRUBIN NEGATIVE (NEGATIVE); BLOOD 3+ (NEGATIVE); CLARITY SL CLOUDY (CLEAR); COLOR YELLOW (YELLOW); GLUCOSE NEGATIVE (NEGATIVE); KETONE NEGATIVE (NEGATIVE); LEUKO ESTERASE 1+ (NEGATIVE); NITRITE NEGATIVE (NEGATIVE); PH 5.5 (5.0-9.0); UROBILINOGEN 0.2 E.U./dl (0.2-1.0); WBC 21-30 wbc/hpf (0-5)
[2018-08-16 19:27] LABS: MUCOUS TRACE; RBC 21-30 rbc/hpf (0-2)
== END 2018-08-16 22:15 | disposition home or self-care (01) ==
LOC: ED 18:57
PROVIDERS: Emergency Medicine
DX: T83.83XA Hemorrhage due to genitourinary prosthetic devices, implants and grafts, initial encounter (principal); R31.9 Hematuria, unspecified; I13.0 Hypertensive heart and chronic kidney disease with heart failure and stage 1 through stage 4 chronic kidney disease, or unspecified chronic kidney disease; E11.22 Type 2 diabetes mellitus with diabetic chronic kidney disease; N18.3 Chronic kidney disease, stage 3 (moderate); E78.5 Hyperlipidemia, unspecified; E66.9 Obesity, unspecified; F17.210 Nicotine dependence, cigarettes, uncomplicated; Z87.442 Personal history of urinary calculi; Z79.899 Other long term (current) drug therapy; Z79.01 Long term (current) use of anticoagulants; Z68.34 Body mass index [BMI] 34.0-34.9, adult; Y83.8 Other surgical procedures as the cause of abnormal reaction of the patient, or of later complication, without mention of misadventure at the time of the procedure; Y92.89 Other specified places as the place of occurrence of the external cause

== ENCOUNTER 2018-08-27 16:39 | Emergency (ER) | payer MEDICARE, OTHER ==
[~2018-08-27] VITALS: Ht 177.8 cm; Wt 106.6 kg
[2018-08-27 16:40] VITALS: BP 127/58
== END 2018-08-27 17:35 | disposition home or self-care (01) ==
LOC: ED 16:39
DX: T83.028A Displacement of other urinary catheter, initial encounter (principal); L03.116 Cellulitis of left lower limb; L03.115 Cellulitis of right lower limb; I48.0 Paroxysmal atrial fibrillation; E11.22 Type 2 diabetes mellitus with diabetic chronic kidney disease; I13.0 Hypertensive heart and chronic kidney disease with heart failure and stage 1 through stage 4 chronic kidney disease, or unspecified chronic kidney disease; N18.3 Chronic kidney disease, stage 3 (moderate); I50.9 Heart failure, unspecified; E78.5 Hyperlipidemia, unspecified; E66.9 Obesity, unspecified; F17.210 Nicotine dependence, cigarettes, uncomplicated; Z68.30 Body mass index [BMI] 30.0-30.9, adult; Z79.899 Other long term (current) drug therapy; Z79.2 Long term (current) use of antibiotics; Z79.01 Long term (current) use of anticoagulants; Y84.8 Other medical procedures as the cause of abnormal reaction of the patient, or of later complication, without mention of misadventure at the time of the procedure; Y92.89 Other specified places as the place of occurrence of the external cause

== ENCOUNTER 2018-09-03 12:52 | Emergency (ER) | payer MEDICARE, OTHER ==
[~2018-09-03] VITALS: Ht 177.8 cm; Wt 106.6 kg
[2018-09-03 13:34] LABS: BILIRUBIN NEGATIVE (NEGATIVE); BLOOD 3+ (NEGATIVE); CLARITY CLOUDY (CLEAR); COLOR YELLOW (YELLOW); GLUCOSE NEGATIVE (NEGATIVE); KETONE NEGATIVE (NEGATIVE); LEUKO ESTERASE 1+ (NEGATIVE); NITRITE NEGATIVE (NEGATIVE); SPECIFIC GRAVITY 1.015 (1.005-1.030); UROBILINOGEN 0.2 E.U./dl (0.2-1.0)
[2018-09-03 13:42] LABS: BASO # 0.1 10*3/uL (0.0-0.1); BASO % 1.1 % (0.0-1.0); EOS # 0.3 10*3/uL (0.0-0.4); EOS % 4.5 % (1.0-4.0); HEMATOCRIT 42.9 % (42.0-52.0); HEMOGLOBIN 13.6 g/dl (14.0-18.0); LYMPH # 1.4 10*3/uL (1.3-4.4); LYMPH % 25.5 % (27.0-41.0); MEAN CELL VOLUME 98.4 fl (80.0-94.0); MEAN CORPUSCULAR HGB 31.2 pg (27.0-31.0); MEAN CORPUSCULAR HGB CONC 31.7 g/dl (33.0-37.0); MEAN PLATELET VOLUME 9.8 fl (9.6-12.3); MONO # 0.5 10*3/uL (0.1-1.0); MONO % 9.4 % (3.0-9.0); NEUT # 3.3 10*3/uL (2.3-7.9); NEUT % 59.3 % (47.0-73.0); PLATELET COUNT AUTOMATED 264 10*3/uL (130-400); RED BLOOD COUNT 4.36 10*6/uL (4.50-5.90); RED CELL DISTRI WIDTH 14.1 % (0-14.5); WHITE BLOOD COUNT 5.5 10*3/uL (4.8-10.8)
[2018-09-03 13:43] LABS: RBC 51-100 rbc/hpf (0-2)
[2018-09-03 13:44] LABS: BACTERIA 2+; CALCIUM OXALATE CRYSTALS 1+; MUCOUS 1+; YEAST 3+
[2018-09-03 13:57] LABS: ALBUMIN 3.6 gm/dl (3.1-4.5); ALKALINE PHOSPHATASE 80 U/L (45-117); BUN 18 mg/dl (7-24); CHLORIDE 103 mmol/L (98-107); CREATININE 1.25 mg/dL (0.70-1.30); POTASSIUM 4.3 mmol/L (3.5-5.1); SGOT/AST 21 IU/L (3-35); SGPT/ALT 21 U/L (12-78); SODIUM 137 mmol/L (136-145)
[2018-09-03] MEDS ORDERED: CEPHALEXIN500 M1 PO (14:26)
[2018-09-03 14:40] VITALS: BP 138/64
== END 2018-09-03 15:43 | disposition home or self-care (01) ==
LOC: ED 12:52
PROVIDERS: Nurse Practitioner Family
DX: I87.2 Venous insufficiency (chronic) (peripheral) (principal); N39.0 Urinary tract infection, site not specified; F17.200 Nicotine dependence, unspecified, uncomplicated; Z79.899 Other long term (current) drug therapy; Z79.01 Long term (current) use of anticoagulants

== ENCOUNTER 2018-11-23 14:00 | Emergency (ER) | payer MEDICARE, OTHER ==
[~2018-11-23] VITALS: Wt 81.6 kg
== END 2018-11-23 15:16 | disposition home or self-care (01) ==
LOC: ED 14:00
DX: T83.038A Leakage of other urinary catheter, initial encounter (principal); J44.9 Chronic obstructive pulmonary disease, unspecified; I25.10 Atherosclerotic heart disease of native coronary artery without angina pectoris; E11.22 Type 2 diabetes mellitus with diabetic chronic kidney disease; I13.0 Hypertensive heart and chronic kidney disease with heart failure and stage 1 through stage 4 chronic kidney disease, or unspecified chronic kidney disease; N18.3 Chronic kidney disease, stage 3 (moderate); I50.9 Heart failure, unspecified; E11.51 Type 2 diabetes mellitus with diabetic peripheral angiopathy without gangrene; I48.2 Chronic atrial fibrillation; E78.5 Hyperlipidemia, unspecified; E66.9 Obesity, unspecified; F17.210 Nicotine dependence, cigarettes, uncomplicated; Z88.1 Allergy status to other antibiotic agents; Z79.899 Other long term (current) drug therapy; Z79.01 Long term (current) use of anticoagulants; Z68.30 Body mass index [BMI] 30.0-30.9, adult

== ENCOUNTER 2018-12-14 22:43 | Emergency (ER) | payer MEDICARE, OTHER ==
[~2018-12-14] VITALS: Wt 81.6 kg
[2018-12-14 22:44] VITALS: BP 150/68
== END 2018-12-14 23:37 | disposition home or self-care (01) ==
LOC: ED 22:43
DX: T83.038A Leakage of other urinary catheter, initial encounter (principal); F17.200 Nicotine dependence, unspecified, uncomplicated; Z88.1 Allergy status to other antibiotic agents; Z79.899 Other long term (current) drug therapy; Z79.01 Long term (current) use of anticoagulants; Y84.6 Urinary catheterization as the cause of abnormal reaction of the patient, or of later complication, without mention of misadventure at the time of the procedure; Y92.89 Other specified places as the place of occurrence of the external cause

== ENCOUNTER 2019-01-04 12:38 | Emergency (ER) | payer MEDICARE, OTHER ==
[2019-01-04 13:08] LABS: BASO % 0.5 % (0.0-1.0); EOS # 0.1 10*3/uL (0.0-0.4); EOS % 1.8 % (1.0-4.0); HEMATOCRIT 40.8 % (42.0-52.0); HEMOGLOBIN 13.3 g/dl (14.0-18.0); LYMPH % 12.3 % (27.0-41.0); MEAN CELL VOLUME 95.6 fl (80.0-94.0); MEAN CORPUSCULAR HGB 31.1 pg (27.0-31.0); MEAN CORPUSCULAR HGB CONC 32.6 g/dl (33.0-37.0); MEAN PLATELET VOLUME 9.7 fl (9.6-12.3); MONO # 0.6 10*3/uL (0.1-1.0); MONO % 7.3 % (3.0-9.0); NEUT # 6.1 10*3/uL (2.3-7.9); NEUT % 77.8 % (47.0-73.0); PLATELET COUNT AUTOMATED 226 10*3/uL (130-400); RED BLOOD COUNT 4.27 10*6/uL (4.50-5.90); RED CELL DISTRI WIDTH 14.3 % (0-14.5); WHITE BLOOD COUNT 7.9 10*3/uL (4.8-10.8)
[2019-01-04 13:20] LABS: ACT PARTIAL THROMBO TIME 38.9 SECONDS (20.0-32.1); INTERNATIONAL NORM RATIO 2.7 (2.0-3.5)
[2019-01-04 13:22] LABS: ALBUMIN 3.4 gm/dl (3.1-4.5); ALKALINE PHOSPHATASE 82 U/L (45-117); BUN 20 mg/dl (7-24); CHLORIDE 108 mmol/L (98-107); CREATININE 1.37 mg/dL (0.70-1.30); POTASSIUM 3.6 mmol/L (3.5-5.1); SGOT/AST 20 IU/L (3-35); SGPT/ALT 23 U/L (12-78); SODIUM 140 mmol/L (136-145); TOTAL PROTEIN 7.7 gm/dL (6.4-8.2)
[2019-01-04 15:14] VITALS: BP 130/68
== END 2019-01-04 15:38 | disposition short-term general hospital (02) ==
LOC: ED 12:38
PROVIDERS: Emergency Medicine
DX: T83.098A Other mechanical complication of other urinary catheter, initial encounter (principal); R33.9 Retention of urine, unspecified; R31.0 Gross hematuria; E11.22 Type 2 diabetes mellitus with diabetic chronic kidney disease; I13.0 Hypertensive heart and chronic kidney disease with heart failure and stage 1 through stage 4 chronic kidney disease, or unspecified chronic kidney disease; N18.3 Chronic kidney disease, stage 3 (moderate); I50.9 Heart failure, unspecified; E11.51 Type 2 diabetes mellitus with diabetic peripheral angiopathy without gangrene; I48.20 Chronic atrial fibrillation, unspecified; E78.5 Hyperlipidemia, unspecified; E66.9 Obesity, unspecified; F17.210 Nicotine dependence, cigarettes, uncomplicated; Z88.1 Allergy status to other antibiotic agents; Z79.01 Long term (current) use of anticoagulants; Z79.899 Other long term (current) drug therapy; Z68.30 Body mass index [BMI] 30.0-30.9, adult

== ENCOUNTER 2019-01-16 18:53 | Emergency (ER) | payer MEDICARE, OTHER ==
[~2019-01-16] VITALS: Ht 177.8 cm; Wt 99.8 kg
[2019-01-16 18:54] VITALS: BP 124/59
[2019-01-16 19:47] LABS: BILIRUBIN NEGATIVE (NEGATIVE); BLOOD 3+ (NEGATIVE); CLARITY CLOUDY (CLEAR); COLOR YELLOW (YELLOW); GLUCOSE NEGATIVE (NEGATIVE); KETONE NEGATIVE (NEGATIVE); LEUKO ESTERASE 3+ (NEGATIVE); NITRITE POSITIVE (NEGATIVE); SPECIFIC GRAVITY 1.015 (1.005-1.030); UROBILINOGEN 0.2 E.U./dl (0.2-1.0)
[2019-01-16 19:56] LABS: BACTERIA 2+; MUCOUS 2+; RBC 51-100 rbc/hpf (0-2); WBC TNTC wbc/hpf (0-5)
[2019-01-16] MEDS ORDERED: CEFUROXIME250 MG PO (20:43)
== END 2019-01-16 20:52 | disposition home or self-care (01) ==
LOC: ED 18:53
PROVIDERS: Nurse Practitioner Family
DX: T83.038A Leakage of other urinary catheter, initial encounter (principal); T83.518A Infection and inflammatory reaction due to other urinary catheter, initial encounter; N39.0 Urinary tract infection, site not specified; I11.0 Hypertensive heart disease with heart failure; I50.9 Heart failure, unspecified; K21.9 Gastro-esophageal reflux disease without esophagitis; I48.91 Unspecified atrial fibrillation; F17.200 Nicotine dependence, unspecified, uncomplicated; Z88.1 Allergy status to other antibiotic agents; Z79.899 Other long term (current) drug therapy; Z79.01 Long term (current) use of anticoagulants; Y84.9 Medical procedure, unspecified as the cause of abnormal reaction of the patient, or of later complication, without mention of misadventure at the time of the procedure; Y92.89 Other specified places as the place of occurrence of the external cause

== ENCOUNTER 2019-03-22 12:06 | Emergency (ER) | payer MEDICARE, MEDICAID ==
[~2019-03-22] VITALS: Ht 177.8 cm; Wt 99.8 kg
[~2019-03-22 12:06] MED LIST changes: +CEFUROXIME250 MG PO
[2019-03-22 12:30] VITALS: BP 102/58
[2019-03-22 12:46] LABS: BILIRUBIN NEGATIVE (NEGATIVE); BLOOD 3+ (NEGATIVE); CLARITY SL CLOUDY (CLEAR); COLOR YELLOW (YELLOW); GLUCOSE NEGATIVE (NEGATIVE); KETONE NEGATIVE (NEGATIVE); LEUKO ESTERASE 2+ (NEGATIVE); NITRITE NEGATIVE (NEGATIVE); PH >= 9.0 (5.0-9.0); SPECIFIC GRAVITY <= 1.005 (1.005-1.030); UROBILINOGEN 0.2 E.U./dl (0.2-1.0)
[2019-03-22 13:03] LABS: BACTERIA 2+; RBC 21-30 rbc/hpf (0-2); TRIP PHOS CRYSTALS 3+
[2019-03-22 13:40] LABS: BASO # 0.1 10*3/uL (0.0-0.1); BASO % 0.8 % (0.0-1.0); EOS # 0.2 10*3/uL (0.0-0.4); EOS % 3.3 % (1.0-4.0); HEMATOCRIT 42.6 % (42.0-52.0); HEMOGLOBIN 13.8 g/dl (14.0-18.0); LYMPH # 0.9 10*3/uL (1.3-4.4); MEAN CELL VOLUME 96.2 fl (80.0-94.0); MEAN CORPUSCULAR HGB 31.2 pg (27.0-31.0); MEAN CORPUSCULAR HGB CONC 32.4 g/dl (33.0-37.0); MEAN PLATELET VOLUME 9.7 fl (9.6-12.3); MONO # 0.6 10*3/uL (0.1-1.0); MONO % 8.8 % (3.0-9.0); NEUT # 4.6 10*3/uL (2.3-7.9); NEUT % 72.9 % (47.0-73.0); PLATELET COUNT AUTOMATED 234 10*3/uL (130-400); RED BLOOD COUNT 4.43 10*6/uL (4.50-5.90); RED CELL DISTRI WIDTH 13.7 % (0-14.5); WHITE BLOOD COUNT 6.4 10*3/uL (4.8-10.8)
[2019-03-22 13:55] LABS: ALBUMIN 3.4 gm/dl (3.1-4.5); ALKALINE PHOSPHATASE 77 U/L (45-117); BUN 25 mg/dl (7-24); CHLORIDE 107 mmol/L (98-107); CREATININE 1.37 mg/dL (0.70-1.30); POTASSIUM 4.8 mmol/L (3.5-5.1); SGOT/AST 16 IU/L (3-35); SGPT/ALT 17 U/L (12-78); SODIUM 140 mmol/L (136-145); TOTAL PROTEIN 7.3 gm/dL (6.4-8.2)
== END 2019-03-22 15:02 | disposition home or self-care (01) ==
LOC: ED 12:06
PROVIDERS: Nurse Practitioner Family
DX: T85.9XXA Unspecified complication of internal prosthetic device, implant and graft, initial encounter (principal); I11.0 Hypertensive heart disease with heart failure; I50.9 Heart failure, unspecified; I48.91 Unspecified atrial fibrillation; Z79.899 Other long term (current) drug therapy; Z79.01 Long term (current) use of anticoagulants; Z88.1 Allergy status to other antibiotic agents; Y92.89 Other specified places as the place of occurrence of the external cause

== ENCOUNTER 2019-04-29 18:20 | Emergency (ER) | payer MEDICARE, MEDICAID ==
[~2019-04-29] VITALS: Ht 177.8 cm; Wt 102.1 kg
[2019-04-29 20:27] LABS: BASO % 0.3 % (0.0-1.0); EOS # 0.1 10*3/uL (0.0-0.4); EOS % 0.8 % (1.0-4.0); HEMATOCRIT 45.3 % (42.0-52.0); HEMOGLOBIN 14.7 g/dl (14.0-18.0); LYMPH # 0.6 10*3/uL (1.3-4.4); MEAN CELL VOLUME 95.4 fl (80.0-94.0); MEAN CORPUSCULAR HGB 30.9 pg (27.0-31.0); MEAN CORPUSCULAR HGB CONC 32.5 g/dl (33.0-37.0); MEAN PLATELET VOLUME 9.8 fl (9.6-12.3); MONO # 0.2 10*3/uL (0.1-1.0); MONO % 2.6 % (3.0-9.0); NEUT # 8.3 10*3/uL (2.3-7.9); PLATELET COUNT AUTOMATED 195 10*3/uL (130-400); RED BLOOD COUNT 4.75 10*6/uL (4.50-5.90); RED CELL DISTRI WIDTH 14.1 % (0-14.5); WHITE BLOOD COUNT 9.2 10*3/uL (4.8-10.8)
[2019-04-29 20:46] LABS: ALBUMIN 3.9 gm/dl (3.1-4.5); CREATININE 1.76 mg/dL (0.70-1.30); POTASSIUM 3.9 mmol/L (3.5-5.1); TOTAL PROTEIN 8.4 gm/dL (6.4-8.2)
[2019-04-29 23:30] VITALS: BP 118/54
== END 2019-04-30 01:34 | disposition short-term general hospital (02) ==
LOC: ED 18:20
PROVIDERS: Physician Assistant
DX: T83.091A Other mechanical complication of indwelling urethral catheter, initial encounter (principal); R31.0 Gross hematuria; L03.116 Cellulitis of left lower limb; L03.115 Cellulitis of right lower limb; I11.0 Hypertensive heart disease with heart failure; I50.9 Heart failure, unspecified; I48.91 Unspecified atrial fibrillation; Z79.899 Other long term (current) drug therapy; Z79.01 Long term (current) use of anticoagulants; Y92.89 Other specified places as the place of occurrence of the external cause

== ENCOUNTER 2019-08-12 12:56 | Inpatient (IN) | payer MEDICARE, MEDICAID ==
[~2019-08-12] VITALS: Ht 177.8 cm; Wt 97.1 kg
[2019-08-12 13:04] VITALS: BP 124/62
[2019-08-12 13:49] VITALS: BP 135/54
[2019-08-12 14:15] LABS: BASO # 0.1 10*3/uL (0.0-0.1); BASO % 0.7 % (0.0-1.0); EOS % 0.4 % (1.0-4.0); LYMPH # 1.7 10*3/uL (1.3-4.4); LYMPH % 23.2 % (27.0-41.0); MEAN CELL VOLUME 90.9 fl (80.0-94.0); MEAN CORPUSCULAR HGB 29.2 pg (27.0-31.0); MEAN CORPUSCULAR HGB CONC 32.2 g/dl (33.0-37.0); MEAN PLATELET VOLUME 9.3 fl (9.6-12.3); MONO # 0.9 10*3/uL (0.1-1.0); MONO % 12.6 % (3.0-9.0); NEUT # 4.7 10*3/uL (2.3-7.9); NEUT % 62.7 % (47.0-73.0); PLATELET COUNT AUTOMATED 211 10*3/uL (130-400); RED BLOOD COUNT 4.07 10*6/uL (4.50-5.90); RED CELL DISTRI WIDTH 14.7 % (0-14.5); WHITE BLOOD COUNT 7.5 10*3/uL (4.8-10.8)
[2019-08-12 14:25] LABS: INTERNATIONAL NORM RATIO 2.1 (2.0-3.5)
[2019-08-12 14:34] LABS: ALBUMIN 3.2 gm/dl (3.1-4.5); ALKALINE PHOSPHATASE 75 U/L (45-117); BUN 29 mg/dl (7-24); CHLORIDE 105 mmol/L (98-107); CREATININE 1.55 mg/dL (0.70-1.30); POTASSIUM 3.9 mmol/L (3.5-5.1); SGOT/AST 14 IU/L (3-35); SGPT/ALT 16 U/L (12-78); SODIUM 136 mmol/L (136-145); TOTAL PROTEIN 7.4 gm/dL (6.4-8.2)
[2019-08-12 14:35] LABS: TROPONIN I < 0.015 ng/ml (<0.045)
[2019-08-12 14:55] LABS: BILIRUBIN NEGATIVE (NEGATIVE); BLOOD 2+ (NEGATIVE); CLARITY CLOUDY (CLEAR); COLOR YELLOW (YELLOW); GLUCOSE NEGATIVE (NEGATIVE); KETONE NEGATIVE (NEGATIVE); LEUKO ESTERASE 3+ (NEGATIVE); NITRITE NEGATIVE (NEGATIVE); PH 8.5 (5.0-9.0); SPECIFIC GRAVITY 1.005 (1.005-1.030); UROBILINOGEN 0.2 E.U./dl (0.2-1.0)
[2019-08-12 15:20] LABS: WBC TNTC wbc/hpf (0-5)
[2019-08-12 15:21] LABS: BACTERIA 3+; TRIP PHOS CRYSTALS 4+
--- NOTE | 2019-08-12 15:30 | NUR ---
REPORT FROM KSENIA RN AT THIS TIME. PREADMISSION DOCUMENTATION COMPLETED BY HER.
[2019-08-12 15:58] VITALS: BP 129/55
--- NOTE | 2019-08-12 16:15 | NUR ---
ASSIST ANNA HERMAN AT BEDSIDE TO CHANGE SUPRABPUBIC CATHETER AT THIS TIME
[2019-08-12 17:32] LABS: BILIRUBIN NEGATIVE (NEGATIVE); BLOOD 3+ (NEGATIVE); CLARITY CLOUDY (CLEAR); COLOR YELLOW (YELLOW); GLUCOSE NEGATIVE (NEGATIVE); KETONE NEGATIVE (NEGATIVE); LEUKO ESTERASE 3+ (NEGATIVE); NITRITE NEGATIVE (NEGATIVE); RBC TNTC rbc/hpf (0-2); UROBILINOGEN 0.2 E.U./dl (0.2-1.0); WBC TNTC wbc/hpf (0-5)
[2019-08-12 17:33] LABS: BACTERIA 2+
[2019-08-12 17:45] VITALS: BP 120/65
--- NOTE | 2019-08-12 17:53 | NUR ---
Time: N A 85 year old MALE admitted to 5E under services of INEZ FREDERICK DO. Pt. arrived via bed from ER. Chief complaint: UTI. DEDRA PUENTE
--- NOTE | 2019-08-12 18:09 | NUR ---
, AND NOTIFIED OF CONSULTS
--- NOTE | 2019-08-12 19:00 | NUR ---
ASSUMED CARE FOR THIS PT AT THIS TIME. PT AWAKE IN BED WATCHING TV. SUPRAPUBIC INTACT AND DRAINING MEDIUM YELLOW URINE. HEEL PROTECTORS ON. BED IN LOW POSITION W/WHEELS LOCKED AND ALARM ON. CALL LIGHT IN REACH.
--- NOTE | 2019-08-12 19:42 | NUR ---
PT C/O LT HIP PAIN 06/25. MEDICATED W/650MG TYLENOL PO.
[2019-08-12 20:00] VITALS: BP 108/53
--- NOTE | 2019-08-12 20:42 | NUR ---
PT STATES THAT TYLENOL WAS EFFECTIVE FOR PAIN RELIEF. PT REPOSITIONED FOR COMFORT IN BED. HEEL PROTECTORS ON. BED IN LOW POSITION W/WHEELS LOCKED AND ALARM ON.
[2019-08-13] VITALS: BP 110/56
--- NOTE | 2019-08-13 03:45 | NUR ---
24 HR chart check completed.
--- NOTE | 2019-08-13 07:04 | NUR ---
JOVANNA ROE [id number] Please refer to the physician's history and physical for past medical history, comorbid conditions, and allergies. Diagnosis: UTI HESHAM WITH ATN Gokul Score: 12,HIGH RISK WOUND DESCRIPTIONS: Wound Number: 1 Location of the wound: suprapubic cath Type of wound: MASD Thickness: Partial Size: 3.7cm x 9.0cm x 0.1cm Tunneling: none Undermining: none Sinus Tract: none Presence of Exudate: Serous Amount: Light Color: Red Odor: Foul Periwound Skin Appearance: Normal Wound edges: approximated Pain (associated with wound): none at time of assessment How does patient state this happened? pt states this is ongoing and it comes and goes Wound Number: 2 Coccyx (Center) no open areas at time of assessment. No drainage noted at time of assessment area is pink and blanchable. Wound Number: 3 Location of the wound: coccyx ( left ) Type of wound: stage 2 Thickness: Partial Size: 3.0cm x 2.0cm x 0.1cm Tunneling: none Undermining: none Sinus Tract: none Presence of Exudate: Serousanguineous Amount: Light Color: Red Odor: None Periwound Skin Appearance: scar tissue Wound edges: approximated Pain (associated with wound): none at time of assessment How does patient state this happened? pt unsure how this happened Wound Number: 4 Location of the wound: coccyx ( right ) Type of wound: stage 2 Thickness: Partial Size: 0.1cm x 0.4cm x 0.1cm Tunneling: none Undermining: none Sinus Tract: none Presence of Exudate: Serousanguineous Amount: Light Color: Red Odor: None Periwound Skin Appearance: scar tissue Wound edges: approximated Pain (associated with wound): none at time of assessment How does patient state this happened? pt unsure how this happened Wound Number: 5 Left lower leg edema noted, dry and flaky areas, no open areas noted at time of assessment. No drainage noted at time of assessment Wound Number: 6 Right lower leg edema noted, dry and flaky areas, no open areas noted at time of assessment. No drainage noted at time of assessment. Surface the patient is resting on: Position Pro SKIN PREVENTION RECOMMENDATION: 1. Pressure redistribution support surface as appropriate 2. Elevate heels 3. Remove boots/TEDS every shift and reapply 4. Head of bed 30 degrees as tolerated 5. Assess nutrition and hydration 6. Manage moisture 7. Avoid the use of containment devices while in bed 8. Use absorptive products on surfaces limit layers of linens on bed 9. Turn and reposition every 1-2 hours in bed and every 1 hour in chair as tolerated 10. Weight shifts every 15 minutes while up in chair 11. Offloading with pillows or device to keep heels elevated off bed 12. Monitor skin at least every shift 13. Inspect under medical devices twice a day WOUND TREATMENT RECOMMENDATIONS: Continue wheelchair cushion when oob Continue heel raiser pro boots to bilateral feet while in bed Podiatry is already on consult for toenail care. Continue nystatin powder to suprapubic every 8 hours after cleansing with nss and patting area dry cover with abd pad Cleanse bilateral lower extremities with soap and water pat areas dry then apply lac-hydrin bid and avoid application between toes D/C MASD guidelines Stage 2 guidelines: Cleanse left and right buttocks with nss and apply sureprep around the wound hydrogel to wound bed and cover with optifoam sacral gentle every 2 days and prn for soiling.
--- NOTE | 2019-08-13 07:31 | NUR ---
Patient states he will care for these areas when he returns home and doesn't wish to follow up in an outpatient setting at this time.
[2019-08-13 07:34] LABS: VITAMIN D, 25-HYDROXY 30.8 ng/mL (30-100)
[2019-08-13 07:35] LABS: INTERNATIONAL NORM RATIO 2.1 (2.0-3.5)
[2019-08-13 07:36] LABS: BASO % 0.5 % (0.0-1.0); EOS # 0.3 10*3/uL (0.0-0.4); EOS % 4.7 % (1.0-4.0); LYMPH # 0.7 10*3/uL (1.3-4.4); MEAN CORPUSCULAR HGB 29.5 pg (27.0-31.0); MEAN CORPUSCULAR HGB CONC 31.7 g/dl (33.0-37.0); MEAN PLATELET VOLUME 10.1 fl (9.6-12.3); MONO # 0.6 10*3/uL (0.1-1.0); MONO % 10.3 % (3.0-9.0); NEUT % 72.3 % (47.0-73.0); PLATELET COUNT AUTOMATED 184 10*3/uL (130-400); RED BLOOD COUNT 4.41 10*6/uL (4.50-5.90); RED CELL DISTRI WIDTH 14.6 % (0-14.5); WHITE BLOOD COUNT 5.5 10*3/uL (4.8-10.8)
--- NOTE | 2019-08-13 07:53 | NUR ---
PHYSICAL THERAPY Screen and PT eval received will follow thank you. Asia Grullon PT
[2019-08-13 08:00] VITALS: BP 126/62
--- NOTE | 2019-08-13 08:05 | NUR ---
Occupational therapy order and nursing screen received. Will follow up with patient for completion of an OT evaluation. Thank you. Indigo Mccormick, OTR/L
--- NOTE | 2019-08-13 08:25 | NUR ---
Dr. Caruso notified of wound care recommendations
--- NOTE | 2019-08-13 08:44 | NUR ---
TELEPHONE SERVICE ADVISER MADE REPORT TO APS, SCREENER WILL PASS REFERRAL TO SUPERVISIOR FOR REVIEW.
--- NOTE | 2019-08-13 09:15 | NUR ---
PHYSICAL THERAPY Eval intiated at the bedside however then hospitalist and podiatry doctors in to see and assess patient. Will follow later in the AM for evaluation, spoke with nsg. Asia Grullon PT
--- NOTE | 2019-08-13 09:20 | NUR ---
OT NOTE Occupational therapy order received and chart reviewed. Nursing gave approval to see patient. OTR obtained subjective information from patient. MDs and podiatry into room to assess patient. Will check back when patient is available for an OT eval. Thank you. Indigo Mccormick, OTR/Thierno
--- NOTE | 2019-08-13 09:30 | NUR ---
MED LIST OBTAINED FROM [facility] AND MED REC UPDATED AT THIS TIME. WILL NOTIFY
--- NOTE | 2019-08-13 09:30 | NUR ---
On Site Services Specialist in to talk to patient. Patient states lives at home alone. There are 0 steps in the home. There is an elevator. He states he can use the steps if he chooses to. Physician: Dr. Hayden Montelongo/[facility]: [place] or [facility] health services: currently has OV and would like to resume those services upon discharge Patient's level of ADLs: MINIMAL ASSIST Patient has working utilities: yes DME: cane, walker Follow-up physician's appointment after d/c: will be made by the hospitalist nurse director upon discharge Does patient want to access PORTAL?: no Discharge plan discussed with patient. He states he lives at [address] [facility] [address] alone. He needs assistance with his ADLs and uses a cane for short distances and a walker for long distances. Discussed short term rehab and he adamantly refuses stating "I don't know why everyone keeps asking about rehab. I'm not going to rehab." Discussed home health care services and he currently has [facility] and would like to resume those services upon discharge. When medically stable he will be discharged to home with the resumption of his OV services. He is unsure of transportation on discharge at this time. SUSANNAH PARIKH
[2019-08-13] MEDS ORDERED: VITAMIN D325 MC1 PO (09:38)
[2019-08-13] MEDS ORDERED: KENALOG 0.1% OI15 GM T (09:39)
[2019-08-13] MEDS ORDERED: NATURE'S BLEND F1 MG PO (09:40)
[2019-08-13] MEDS ORDERED: PROTONIX40 MG PO (09:41)
--- NOTE | 2019-08-13 10:30 | NUR ---
LAC HYDRIN APPLIED TO LEGS. PT TOLERATED WELL. BILAT LEGS NOTED TO BED RED AND SCALY WITH THICK DRY SKIN.
--- NOTE | 2019-08-13 10:36 | NUR ---
Occupational Therapy evaluation completed on five with full evaluation to follow. Recommend occupational therapy per plan of care and SNF upon discharge. Thank you for this referral. Indigo Mccormick OTR/L
--- NOTE | 2019-08-13 11:35 | NUR ---
Physical Therapy evaluation completed on fifth floor with full evaluation to follow. Recommend physical therapy per plan of care and SNF upon discharge, however pt adamently refusing any rehab. Pt is agreeable to home health services. Case mangagement in room at time of evaluation and addressing concerns for home as lives alone and no family/friends to assist or help out at apartment. Thank you for this referral. Asia Grullon PT
[2019-08-13 12:00] VITALS: BP 121/59
--- NOTE | 2019-08-13 12:14 | NUR ---
LORA RECEIVED STATEMENT OF EXPERT EVALUATION FOR GUARDIANSHIP FROM DR ROBYN PEREZ. LORA FAXED DOCUMENTS TO SA[facility] AT [facility].
[2019-08-13 13:10] LABS: ALBUMIN 3.2 gm/dl (3.1-4.5); ALKALINE PHOSPHATASE 74 U/L (45-117); BUN 25 mg/dl (7-24); CHLORIDE 113 mmol/L (98-107); CHOLESTEROL 118 mg/dL (<200); CREATININE 1.19 mg/dL (0.70-1.30); HDL CHOLESTEROL 30 mg/dl (40-60); LDL CHOLESTEROL 69 mg/dL (9-159); POTASSIUM 4.1 mmol/L (3.5-5.1); SGOT/AST 18 IU/L (3-35); SGPT/ALT 17 U/L (12-78); SODIUM 142 mmol/L (136-145); TOTAL PROTEIN 7.5 gm/dL (6.4-8.2); TRIGLYCERIDES 96 mg/dl (<150); VLDL CHOLESTEROL 19 mg/dL (6-40)
--- NOTE | 2019-08-13 15:59 | NUR ---
Nutritional Support Services Note: Pt is eating 100% of meals. Wounds noted to coccyx. He refuses any type of supplement. Encouragd continued good intake of meals. Encouraged healthy eating and adequate protein intake. Will follow if needed. Will provide pt with a night snack. Kimberly Hayes Rdn Ld
[2019-08-13 16:00] VITALS: BP 123/55
--- NOTE | 2019-08-13 19:00 | NUR ---
ASSUMED CARE FOR THIS PT AT THIS TIME. PT SITTING IN RECLINER CHAIR. NO C/O VOICED. PT REFUSING TO ELEVATED BLE. PT TEACHING GIVEN. URINE MEDIUM YELLOW IN F/C BAG. CALL LIGHT IN REACH.
[2019-08-13 20:00] VITALS: BP 113/63
--- NOTE | 2019-08-13 21:23 | NUR ---
PT MEDICATED W/650 MG TYLENOL PO FOR C/O ARTHRITIS IN NECK.
--- NOTE | 2019-08-13 22:20 | NUR ---
PT RESTING QUIETLY IN BED W/EYES CLOSED. NO S/S OF DISTRESS NOTED.
[2019-08-14] VITALS: BP 125/67
[2019-08-14 06:49] LABS: BUN 20 mg/dl (7-24); CHLORIDE 109 mmol/L (98-107); CREATININE 0.92 mg/dL (0.70-1.30); SODIUM 139 mmol/L (136-145)
[2019-08-14 06:52] LABS: INTERNATIONAL NORM RATIO 2.3 (2.0-3.5)
--- NOTE | 2019-08-14 07:11 | NUR ---
LORA SENT CLINICALS TO [facility] VIA EMAIL TO .
[2019-08-14 08:00] VITALS: BP 128/70
--- NOTE | 2019-08-14 11:55 | NUR ---
OT NOTE Pt was seen this P.M. 1:1 for 25 minute OT session. Upon arrival pt was supine in bed. Pt identified by name and and had complaints of 4-5/10 B heel pain. Pt transferred supine to sit EOB with SBA while utilizing bed rail for UE support. Pt completed sit to stand from bed level with Paulo for inital stand and use of straight cane in his RUE. Functional mobility was then completed to the bathroom with CGA and use of straight cane, throughout pt presented with bouts of unsteady stance that required Paulo to correct. Pt also presented with poor safety awareness and bouts of impulsive behaviors that required verbal prompts to correct. Once to the bathroom pt transferred on/off standard commode with CGA and use of grab bar for UE support. He then stood sink side while washing his hands with CGA for safety, pt had one episode of minor LOB while crossing midline for the paper towels that was able to be self corrected. After returning to the chair therapist requested for pt to doff B socks, pt was unable to complete requiring maxA. Educated pt on adaptive equipment for increased I in lower body ADL's, however pt stated that he already has it all at home that he uses. Pt then participated in BUE towel exercises over all planes of motion for 1 X 10 to increase and restore maximum functional strength. Pt was left sitting upright in the recliner with call light in hand, tray table in place, and body alarm activated for safety. Continue with rec D/C plan to SNF. CHRIS Muhammad
[2019-08-14 12:00] VITALS: BP 130/62
--- NOTE | 2019-08-14 13:12 | NUR ---
PHYSICAL THERAPY Pt appraoched by PT this date with patient supine in bed when PT arrived. Pt with c/o pain livia heels with a rating of 4-5/10. Pt transferred from supine to sit with Min A x1 and sit to stand with Min A 1-2. Pt ambulated with cane x 25' x 1 with Min A x 1 without LOB noted. Pt ambulated back to BS chair upon the completion of ambulation and rested. Pt than performed AROM x 10 reps including LAQ, hip flexion, and AP without c/o. Pt rested in BS chair when bed alarm donned following therapy today. Pt's therapy session was co-treated with OT x 25 minutes.
--- NOTE | 2019-08-14 15:00 | NUR ---
OCCUPATIONAL THERAPY CO-SIGN I approve of the Occupational Therapy notes written above. Tressa Garcia OTR/L
--- NOTE | 2019-08-14 15:03 | NUR ---
LORA ALONG WITH REGULATORY INTERN SUSANNAH SERVED THE PATIENT WITH IS COURT APPOINTED [employer]IP PAPER WORK. LORA RETURNED THE PAPER WORK TO [facility].
--- NOTE | 2019-08-14 15:36 | NUR ---
PT AWAKE, ALERT. SITTING UP IN CHAIR. ASSISTED WITH TRANSFER TO BED SIDE COMMODE AT THIS TIME AND DRESSING CHANGED TO BUTTOCKS FOLLOWING BOWEL MOVEMENT. PT TOLERATED WELL. CALL LIGHT IN REACH.
[2019-08-14 16:00] VITALS: BP 107/47
--- NOTE | 2019-08-14 19:20 | NUR ---
REPORT RECEIVED FROM CAROL ANN HOLLEY. PT LYING IN BED NO COMPLAINTS VOICED. [facility]
--- NOTE | 2019-08-14 19:44 | NUR ---
24h chart check completed.
[2019-08-14 20:00] VITALS: BP 125/48
--- NOTE | 2019-08-14 21:00 | NUR ---
PT TEMP IS 100.0. PT OFFERED TYLENOL AND PT REFUSING AT THIS TIME. STATES "ITS NOT THAT HIGH" PT EDUCATED. STILL REFUSING.
--- NOTE | 2019-08-14 23:32 | NUR ---
DR. RUBY NOTIFIED OF TEMP OF 102.6 ORALLY. ALSO NOTIFIED BP 98/49 AND HR 108. STATED HE WOULD PUT ORDER IN. PT ALSO MEDICATED WITH TYLENOL
[2019-08-15] VITALS: BP 98/49
--- NOTE | 2019-08-15 00:30 | NUR ---
TYLENOL EFFECTIVE. PT TEMP DOWN TO 100.5
--- NOTE | 2019-08-15 02:30 | NUR ---
PT APPEARS TO BE SLEEPING AT THIS TIME WITH TV ON, IV FLUIDS INFUSING WITHOUT DIFFICULY, CALL LIGHT IN REACH
--- NOTE | 2019-08-15 04:30 | NUR ---
PT LYING IN BED. IV FLUIDS INFUSING WITHOUT DIFFICULTY. CALL LIGHT IN REACH
[2019-08-15 04:35] VITALS: BP 92/48
--- NOTE | 2019-08-15 06:30 | NUR ---
PT WATCHING TV. NO COMPLAINTS VOICED
[2019-08-15 06:36] LABS: ALKALINE PHOSPHATASE 74 U/L (45-117); BUN 22 mg/dl (7-24); CHLORIDE 109 mmol/L (98-107); CREATININE 1.28 mg/dL (0.70-1.30); POTASSIUM 4.2 mmol/L (3.5-5.1); SGOT/AST 14 IU/L (3-35); SGPT/ALT 16 U/L (12-78); SODIUM 138 mmol/L (136-145); TOTAL PROTEIN 7.3 gm/dL (6.4-8.2)
[2019-08-15 08:00] VITALS: BP 121/54
--- NOTE | 2019-08-15 08:00 | NUR ---
Pharmacy to dose Warfarin: Increased INR (3.0) likely due to initiation of Bactrim and/or Terbinafine. Will reduce weekly dose 20% to 2 mg daily to start. After completion of antibiotic therapy, may consider increasing back to 2.5 mg daily and/or increased INR monitoring.
--- NOTE | 2019-08-15 09:23 | NUR ---
PT MEDICATED WITH PO TYLENOL PER PRN ORDER FOR TEMP 100.0. WILL MONITOR EFFECTIVENESS. CALL LIGHT WITHIN REACH.
--- NOTE | 2019-08-15 10:23 | NUR ---
TYLENOL EFFECTIVE. TEMP NOW 98.9. WILL CONTINUE TO MONITOR. CALL LIGHT WITHIN REACH.
[2019-08-15 12:00] VITALS: BP 125/52
--- NOTE | 2019-08-15 14:52 | NUR ---
TYLENOL GIVEN PER PRN ORDER FOR C/O RIGHT HIP PAIN. RATES PAIN 6/10. WILL MONITOR EFFECTIVENESS.
--- NOTE | 2019-08-15 15:52 | NUR ---
TYLENOL RELIEVING PAIN. WILL CONTINUE TO MONITOR.
[2019-08-15 16:00] VITALS: BP 97/43
--- NOTE | 2019-08-15 19:35 | NUR ---
REPORT RECEIVED FROM PAVAN HOLLEY. PT WATCHING TV AT THIS TIME. NO COMPLAINTS VOICED.
[2019-08-15 20:00] VITALS: BP 109/53
--- NOTE | 2019-08-15 23:36 | NUR ---
PT MEDICATED WITH TYLENOL PER ORDER FOR FEVER. WILL MONITOR EFFECTIVENESS
[2019-08-16] VITALS: BP 104/42
--- NOTE | 2019-08-16 00:25 | NUR ---
TYLENOL EFFECTIVE FOR FEVER
--- NOTE | 2019-08-16 02:30 | NUR ---
PT SLEEPING AT THIS TIME; CALL LIGHT IN REACH
--- NOTE | 2019-08-16 06:14 | NUR ---
PT WATCHING TV AT THIS TIME
[2019-08-16 07:22] LABS: INTERNATIONAL NORM RATIO 3.5 (2.0-3.5)
[2019-08-16 08:00] VITALS: BP 98/60
[2019-08-16 09:00] VITALS: BP 110/60
--- NOTE | 2019-08-16 09:20 | NUR ---
PT SITTING UP IN BED, WATCHING TV. BREAKFAST TRAY SET UP. RESPIRATIONS EASY, REGULAR. VSS. WILL CONTINUE TO MONITOR. PT ENCOURAGED TO GET OOB INTO RECLINER CHAIR. PT VOICED UNDERSTANDING. CALL LIGHT WITHIN REACH.
[2019-08-16 12:00] VITALS: BP 106/54
[2019-08-16 16:00] VITALS: BP 105/50
--- NOTE | 2019-08-16 19:20 | NUR ---
REPORT RECEIVED FROM PAVAN HOLLEY. PT SITTING UP IN BED WATCHING TV. NO COMPLAINTS VOICED. CALL LIGHT IN REACH
[2019-08-16 20:00] VITALS: BP 116/48
--- NOTE | 2019-08-16 21:00 | NUR ---
PT SITTING UP IN BED DOING PUZZLE AT THIS TIME. NO COMPLAINTS VOICED. CALL LIGHT IN REACH
[2019-08-17] VITALS: BP 117/42
--- NOTE | 2019-08-17 | NUR ---
PT SLEEPING AT THIS TIME
--- NOTE | 2019-08-17 02:00 | NUR ---
PT SLEEPING, RESPIRATIONS EASY
--- NOTE | 2019-08-17 04:00 | NUR ---
PT SLEEPING WITH TV ON. CALL LIGHT IN REACH
[2019-08-17 06:27] LABS: INTERNATIONAL NORM RATIO 3.3 (2.0-3.5)
--- NOTE | 2019-08-17 07:11 | NUR ---
PATIENTS COURT APPOINTED GUARDIAN IS JUSTEN PRINCE [phone].
--- NOTE | 2019-08-17 07:48 | NUR ---
DR WHIPPLE NOTIFIED OF TROPONIN 0.55 CALLED BY LAB CRITICAL VALUE.
[2019-08-17 08:00] VITALS: BP 124/52
--- NOTE | 2019-08-17 08:24 | NUR ---
OT NOTE Pt was seen this A.M. 1:1 for 24 minute OT session. Upon arrival pt was supine in bed. Pt identified by name and and had complaints of 4-5/10 L hip pain which he reported as chronic. Pt transferred supine to sit EOB with modA. Sit to stand then completed from bed level with CGA and use of straight cane in his RUE. Challenged pt's static standing tolerance needed for increased I in self care tasks and functional transfers, pt was able to tolerate aprox 8 minutes at a time before sitting due to fatigue. Functional mobility was then completed to the bathroom with CGA and use of straight cane in RUE. There he stood sink side while washing his hands and completing grooming task with CGA for safety. After returning to the recliner pt completed BUE towel exercises over all planes of motion for 1 X 10 to increase and restore maximum functional use. Pt was left sitting upright in the recliner with call light in hand, tray table in place, and body alarm activated for safety. Continue with rec D/C plan to SNF. CHRIS Muhammad
--- NOTE | 2019-08-17 08:25 | NUR ---
DROP SHIPMENT CLERK SPOKE WITH JUSTEN PRINCE. [facility], [facility] WILL FAX CLINICALS.
--- NOTE | 2019-08-17 09:08 | NUR ---
[facility] requested clinicals on patient RN ELIGIBILITY faxed clinicals to [phone].
--- NOTE | 2019-08-17 09:30 | NUR ---
PHYSICAL THERAPY Patient seen this am 1;1 for therapy visit and was supine in bed upon therapist arrival. Patient identified by name / and reports 06/25 B LE chronic pain. OT medical assistant ob gyn was also present for observation only this session as patient transfers supine to sit EOB with Mod A x 1. Patient tolerated static EOB sit for a minute or so then performed sit to stand CGA x 1. Patient ambulated with use of st cane, CGA, demonstrating initial bout of unsteady gait pattern, uneven stride due to L leg length chronic issue. 20'x 2. Patient returned to bedside chair and remained with call light, tray table, telephone and body alarm for safety. Will continue per POC as tolerated, total treatment time 16 minutes. Konstantin Joseph, TRUCK SHOP MECHANIC
--- NOTE | 2019-08-17 11:16 | NUR ---
TRAIL CONSTRUCTION WORKER FAXED PT/OT TO [facility].
[2019-08-17] MEDS ORDERED: TERBINAFINE250 MG PO (11:34)
[2019-08-17] MEDS ORDERED: SEPTDS PO (11:34)
[2019-08-17] MEDS ORDERED: COUMADIN2 M1 PO (11:34)
--- NOTE | 2019-08-17 11:51 | NUR ---
SHIRT LINE OPERATOR COMPLETED HENS.
[2019-08-17 12:00] VITALS: BP 110/52
--- NOTE | 2019-08-17 12:32 | NUR ---
ATMOSPHERIC DRIER TENDER NOTIFIED OF THE PATIENTS DISCHARGE. ATMOSPHERIC DRIER TENDER SPOKE WITH KISHAN SHANE. ATMOSPHERIC DRIER TENDER I ARRANGED WITH [facility] TO TRANSPORT TO [place] AT 2:30PM. ATMOSPHERIC DRIER TENDER NOTIFIED MIMI. ATMOSPHERIC DRIER TENDER NOTIFIED [facility]. ATMOSPHERIC DRIER TENDER CALLED [facility] JUST[facility] PRINCE AND ASKED FOR RETURN CALL ON [employer].
--- NOTE | 2019-08-17 12:54 | NUR ---
LAUNDRY TECH FAXED DISCHARGE ORDERS TO [facility].
--- NOTE | 2019-08-17 13:59 | NUR ---
PT UPSET AND REFUSED TO ALLOW D/C PHOTOS PER [employer]OT[employer]. PT UPSET D/T FACT HE IS NOW A [facility] OF [facility] AND WAS D/C'D TO SNF AT [facility]. STATING "THIS IS SHIT" "I'M NOT GOING TO [facility]". EDUCATION PROVIDED. PT DRESSED FOR D/C VIA AMBULANCE TO THE [facility].
--- NOTE | 2019-08-17 14:52 | NUR ---
REPORT CALLED TO BRENDAN RATLIFF.
--- NOTE | 2019-08-17 15:00 | NUR ---
Discharge instructions reviewed with patient/family. Patient receptive and verbalizes understanding. Follow-up care arranged. Written instructions given to patient/family. HAMZAH MORGAN
--- NOTE | 2019-08-18 08:15 | NUR ---
OCCUPATIONAL THERAPY CO-SIGN I approve of the Occupational Therapy notes written above. GARY CASTRO, OTR/L
--- NOTE | 2019-08-18 08:18 | NUR ---
PHYSICAL THERAPY CO-SIGN I approve of the Physical Therapy notes written above. Asia Grullon PT
== END 2019-08-17 14:50 | disposition other institution (70) | DRG 698 ==
LOC: ED 12:56 → 5E 15:35 → EDHOLD 15:35 → 5E 16:33
PROVIDERS: Internal Medicine; Physician Assistant; Registered Nurse; ADMIT Family Medicine
DX: T83.511A Infection and inflammatory reaction due to indwelling urethral catheter, initial encounter (principal); A41.9 Sepsis, unspecified organism; N17.0 Acute kidney failure with tubular necrosis; E44.0 Moderate protein-calorie malnutrition; I48.20 Chronic atrial fibrillation, unspecified; D68.69 Other thrombophilia; I13.0 Hypertensive heart and chronic kidney disease with heart failure and stage 1 through stage 4 chronic kidney disease, or unspecified chronic kidney disease; L03.119 Cellulitis of unspecified part of limb; N39.0 Urinary tract infection, site not specified; B35.1 Tinea unguium; I87.2 Venous insufficiency (chronic) (peripheral); D64.9 Anemia, unspecified; E78.2 Mixed hyperlipidemia; N18.3 Chronic kidney disease, stage 3 (moderate); I50.9 Heart failure, unspecified; E66.9 Obesity, unspecified; B96.4 Proteus (mirabilis) (morganii) as the cause of diseases classified elsewhere; E11.51 Type 2 diabetes mellitus with diabetic peripheral angiopathy without gangrene; E11.22 Type 2 diabetes mellitus with diabetic chronic kidney disease; N40.0 Benign prostatic hyperplasia without lower urinary tract symptoms; Z66 Do not resuscitate; Z51.5 Encounter for palliative care; E11.65 Type 2 diabetes mellitus with hyperglycemia; E53.8 Deficiency of other specified B group vitamins; R00.1 Bradycardia, unspecified; Y84.6 Urinary catheterization as the cause of abnormal reaction of the patient, or of later complication, without mention of misadventure at the time of the procedure; Z87.891 Personal history of nicotine dependence; Z68.30 Body mass index [BMI] 30.0-30.9, adult; Z80.8 Family history of malignant neoplasm of other organs or systems; Z87.440 Personal history of urinary (tract) infections; Z83.6 Family history of other diseases of the respiratory system; Y92.89 Other specified places as the place of occurrence of the external cause; Z88.1 Allergy status to other antibiotic agents; Z79.899 Other long term (current) drug therapy; Z79.01 Long term (current) use of anticoagulants

== ENCOUNTER 2020-06-10 18:54 | Inpatient (IN) | payer MEDICARE, MEDICAID ==
[~2020-06-10] VITALS: Ht 172.7 cm; Wt 98.6 kg
[~2020-06-10 18:54] MED LIST changes: +COUMADIN2 M1 PO; -COUMADIN2.5 M1 PO; +Coumadin2.5 MG PO; +KENALOG 0.1% OI15 GM T; +TERBINAFINE250 MG PO; +VITAMIN D325 MC1 PO
[2020-06-10 19:00] VITALS: BP 140/58
[2020-06-10 22:17] LABS: BASO % 0.3 % (0.0-1.0); EOS # 0.1 10*3/uL (0.0-0.4); EOS % 1.3 % (1.0-4.0); HEMATOCRIT 42.8 % (42.0-52.0); LYMPH # 1.3 10*3/uL (1.3-4.4); LYMPH % 14.1 % (27.0-41.0); MEAN CELL VOLUME 96.2 fl (80.0-94.0); MEAN CORPUSCULAR HGB 31.2 pg (27.0-31.0); MEAN CORPUSCULAR HGB CONC 32.5 g/dl (33.0-37.0); MEAN PLATELET VOLUME 9.7 fl (9.6-12.3); MONO # 0.7 10*3/uL (0.1-1.0); MONO % 7.9 % (3.0-9.0); NEUT % 76.1 % (47.0-73.0); PLATELET COUNT AUTOMATED 210 10*3/uL (130-400); RED BLOOD COUNT 4.45 10*6/uL (4.50-5.90); RED CELL DISTRI WIDTH 12.8 % (0-14.5); WHITE BLOOD COUNT 9.2 10*3/uL (4.8-10.8)
[2020-06-10 22:27] LABS: INTERNATIONAL NORM RATIO 1.8 (2.0-3.5)
[2020-06-10 22:35] LABS: ALBUMIN 3.4 gm/dl (3.1-4.5); ALKALINE PHOSPHATASE 92 U/L (45-117); BUN 24 mg/dl (7-24); CHLORIDE 105 mmol/L (98-107); CREATININE 1.15 mg/dL (0.70-1.30); SGOT/AST 19 IU/L (3-35); SGPT/ALT 21 U/L (12-78); SODIUM 141 mmol/L (136-145); TOTAL PROTEIN 7.7 gm/dL (6.4-8.2)
[2020-06-10 22:58] LABS: BILIRUBIN Negative (Negative); BLOOD 1+ (Negative); CLARITY Cloudy (Clear); COLOR Yellow (Yellow); GLUCOSE Negative (Negative); KETONE Negative (Negative); LEUKO ESTERASE 2+ (Negative); NITRITE Negative (Negative); SPECIFIC GRAVITY 1.015 (1.001-1.030)
[2020-06-10 23:09] LABS: PH >= 9.0 (4.5-8.0)
[2020-06-10 23:18] VITALS: BP 118/76
[2020-06-10 23:19] LABS: BACTERIA 2+; RBC 16-20 rbc/hpf (0-2); TRIP PHOS CRYSTALS 2+
[2020-06-10 23:20] VITALS: BP 105/57
[2020-06-10] MEDS ORDERED: LASIX20 MG PO (23:48)
[2020-06-10] MEDS ORDERED: ZESTRIL5 MG PO (23:49)
[2020-06-11 06:10] LABS: CHLORIDE 107 mmol/L (98-107); POTASSIUM 3.7 mmol/L (3.5-5.1); SODIUM 142 mmol/L (136-145)
[2020-06-11 06:14] LABS: BUN 23 mg/dl (7-24); CREATININE 1.02 mg/dL (0.70-1.30)
[2020-06-11 06:17] LABS: BASO % 0.6 % (0.0-1.0); EOS # 0.3 10*3/uL (0.0-0.4); EOS % 3.8 % (1.0-4.0); HEMATOCRIT 39.3 % (42.0-52.0); LYMPH # 1.3 10*3/uL (1.3-4.4); MEAN CELL VOLUME 95.6 fl (80.0-94.0); MEAN CORPUSCULAR HGB 31.6 pg (27.0-31.0); MEAN CORPUSCULAR HGB CONC 33.1 g/dl (33.0-37.0); MEAN PLATELET VOLUME 9.8 fl (9.6-12.3); MONO # 0.7 10*3/uL (0.1-1.0); MONO % 9.9 % (3.0-9.0); NEUT # 4.8 10*3/uL (2.3-7.9); NEUT % 67.4 % (47.0-73.0); PLATELET COUNT AUTOMATED 216 10*3/uL (130-400); RED BLOOD COUNT 4.11 10*6/uL (4.50-5.90); RED CELL DISTRI WIDTH 12.9 % (0-14.5); WHITE BLOOD COUNT 7.2 10*3/uL (4.8-10.8)
[2020-06-11 06:23] LABS: INTERNATIONAL NORM RATIO 1.9 (2.0-3.5)
[2020-06-11 07:31] LABS: VITAMIN D, 25-HYDROXY 31.6 ng/mL (30-100)
[2020-06-11 08:00] VITALS: BP 130/71
[2020-06-11 12:00] VITALS: BP 102/51
[2020-06-11 16:00] VITALS: BP 96/54
[2020-06-11 20:00] VITALS: BP 115/57
[2020-06-12] VITALS: BP 146/78
[2020-06-12 08:00] VITALS: BP 143/57
[2020-06-12 09:15] LABS: BASO % 0.4 % (0.0-1.0); EOS # 0.4 10*3/uL (0.0-0.4); EOS % 5.4 % (1.0-4.0); HEMATOCRIT 42.9 % (42.0-52.0); LYMPH # 1.3 10*3/uL (1.3-4.4); LYMPH % 17.7 % (27.0-41.0); MEAN CELL VOLUME 97.1 fl (80.0-94.0); MEAN CORPUSCULAR HGB 31.2 pg (27.0-31.0); MEAN CORPUSCULAR HGB CONC 32.2 g/dl (33.0-37.0); MEAN PLATELET VOLUME 9.5 fl (9.6-12.3); MONO # 0.5 10*3/uL (0.1-1.0); MONO % 7.4 % (3.0-9.0); NEUT % 68.8 % (47.0-73.0); PLATELET COUNT AUTOMATED 184 10*3/uL (130-400); RED BLOOD COUNT 4.42 10*6/uL (4.50-5.90); RED CELL DISTRI WIDTH 12.8 % (0-14.5); WHITE BLOOD COUNT 7.2 10*3/uL (4.8-10.8)
[2020-06-12 09:31] LABS: ALKALINE PHOSPHATASE 84 U/L (45-117); BUN 23 mg/dl (7-24); CHLORIDE 103 mmol/L (98-107); POTASSIUM 4.1 mmol/L (3.5-5.1); SGOT/AST 25 IU/L (3-35); SGPT/ALT 20 U/L (12-78); SODIUM 136 mmol/L (136-145); TOTAL PROTEIN 7.3 gm/dL (6.4-8.2)
[2020-06-12 12:00] VITALS: BP 109/47; BP 110/50
[2020-06-12 16:00] VITALS: BP 140/60
[2020-06-12 20:00] VITALS: BP 107/52
[2020-06-13] VITALS: BP 95/46
[2020-06-13 07:02] LABS: BASO % 0.6 % (0.0-1.0); EOS # 0.5 10*3/uL (0.0-0.4); EOS % 7.1 % (1.0-4.0); HEMATOCRIT 39.5 % (42.0-52.0); LYMPH # 1.4 10*3/uL (1.3-4.4); LYMPH % 21.9 % (27.0-41.0); MEAN CELL VOLUME 96.6 fl (80.0-94.0); MEAN CORPUSCULAR HGB 31.1 pg (27.0-31.0); MEAN CORPUSCULAR HGB CONC 32.2 g/dl (33.0-37.0); MEAN PLATELET VOLUME 10.1 fl (9.6-12.3); MONO # 0.7 10*3/uL (0.1-1.0); MONO % 10.7 % (3.0-9.0); NEUT # 3.8 10*3/uL (2.3-7.9); NEUT % 59.4 % (47.0-73.0); PLATELET COUNT AUTOMATED 184 10*3/uL (130-400); RED BLOOD COUNT 4.09 10*6/uL (4.50-5.90); RED CELL DISTRI WIDTH 12.8 % (0-14.5); WHITE BLOOD COUNT 6.4 10*3/uL (4.8-10.8)
[2020-06-13 07:13] LABS: ALBUMIN 2.7 gm/dl (3.1-4.5); ALKALINE PHOSPHATASE 78 U/L (45-117); BUN 20 mg/dl (7-24); CHLORIDE 106 mmol/L (98-107); CREATININE 1.16 mg/dL (0.70-1.30); POTASSIUM 3.9 mmol/L (3.5-5.1); SGOT/AST 21 IU/L (3-35); SGPT/ALT 20 U/L (12-78); SODIUM 137 mmol/L (136-145)
[2020-06-13 07:14] LABS: TOTAL PROTEIN 6.6 gm/dL (6.4-8.2)
[2020-06-13 08:00] VITALS: BP 135/60
[2020-06-13 12:00] VITALS: BP 100/40
[2020-06-13] MEDS ORDERED: BACTRIM 400-801 EACH PO (14:14)
[2020-06-13] MEDS ORDERED: Humalog SQ (14:14)
[2020-06-13] MEDS ORDERED: HYDROCODONE-AC1 EAC1 PO (14:16)
[2020-06-13 16:00] VITALS: BP 119/61
== END 2020-06-13 17:48 | DRG 914 ==
LOC: ED 18:54 → 5E 22:11 → EDHOLD 22:11 → 5E 22:43
PROVIDERS: Internal Medicine; Student in an Organized Health Care Education/Training Program; ADMIT Internal Medicine; ATTEND Internal Medicine
PROC: 2W3TX1Z Immobilization of Left Foot using Splint (ICD-10-PCS; 2020-06-10)
PROC: 0HBRXZZ Excision of Toe Nail, External Approach (ICD-10-PCS; principal; 2020-06-13)
PROC: 0HBRXZZ Excision of Toe Nail, External Approach (ICD-10-PCS; 2020-06-13)
PROC: 0HBRXZZ Excision of Toe Nail, External Approach (ICD-10-PCS; 2020-06-13)
PROC: 0HBRXZZ Excision of Toe Nail, External Approach (ICD-10-PCS; 2020-06-13)
PROC: 0HBRXZZ Excision of Toe Nail, External Approach (ICD-10-PCS; 2020-06-13)
PROC: 0HBRXZZ Excision of Toe Nail, External Approach (ICD-10-PCS; 2020-06-13)
PROC: 0HBRXZZ Excision of Toe Nail, External Approach (ICD-10-PCS; 2020-06-13)
PROC: 0HBRXZZ Excision of Toe Nail, External Approach (ICD-10-PCS; 2020-06-13)
PROC: 0HBRXZZ Excision of Toe Nail, External Approach (ICD-10-PCS; 2020-06-13)
PROC: 0HBRXZZ Excision of Toe Nail, External Approach (ICD-10-PCS; 2020-06-13)
DX: S49.92XA Unspecified injury of left shoulder and upper arm, initial encounter (principal); I13.0 Hypertensive heart and chronic kidney disease with heart failure and stage 1 through stage 4 chronic kidney disease, or unspecified chronic kidney disease; I50.30 Unspecified diastolic (congestive) heart failure; D53.9 Nutritional anemia, unspecified; Z20.822 Contact with and (suspected) exposure to COVID-19; I50.9 Heart failure, unspecified; B35.1 Tinea unguium; N18.30 Chronic kidney disease, stage 3 unspecified; E11.51 Type 2 diabetes mellitus with diabetic peripheral angiopathy without gangrene; R26.2 Difficulty in walking, not elsewhere classified; E78.5 Hyperlipidemia, unspecified; E83.41 Hypermagnesemia; E11.22 Type 2 diabetes mellitus with diabetic chronic kidney disease; F17.200 Nicotine dependence, unspecified, uncomplicated; W18.30XA Fall on same level, unspecified, initial encounter; I87.2 Venous insufficiency (chronic) (peripheral); R79.1 Abnormal coagulation profile; E11.65 Type 2 diabetes mellitus with hyperglycemia; Y93.89 Activity, other specified; Y92.89 Other specified places as the place of occurrence of the external cause; Y99.8 Other external cause status; Z88.8 Allergy status to other drugs, medicaments and biological substances; Z79.01 Long term (current) use of anticoagulants; Z79.899 Other long term (current) drug therapy

== ENCOUNTER 2020-11-30 13:36 | Inpatient (IN) | payer MEDICARE ==
[2020-11-30] VITALS (14 sets, daily range): BP systolic 79–144; BP diastolic 30–71
[~2020-11-30] VITALS: Ht 177.8 cm; Wt 104.0 kg
[~2020-11-30 13:36] MED LIST changes: +BACTRIM 400-801 EACH PO; +Humalog SQ; +ZESTRIL5 MG PO
[2020-11-30 14:24] LABS: BASO % 0.3 % (0.0-1.0); EOS # 0.2 10*3/uL (0.0-0.4); EOS % 1.3 % (1.0-4.0); HEMATOCRIT 37.9 % (42.0-52.0); LYMPH # 1.1 10*3/uL (1.3-4.4); LYMPH % 8.7 % (27.0-41.0); MEAN CELL VOLUME 95.7 fl (80.0-94.0); MEAN CORPUSCULAR HGB 30.8 pg (27.0-31.0); MEAN CORPUSCULAR HGB CONC 32.2 g/dl (33.0-37.0); MEAN PLATELET VOLUME 9.4 fl (9.6-12.3); MONO # 1.3 10*3/uL (0.1-1.0); MONO % 10.5 % (3.0-9.0); NEUT # 9.5 10*3/uL (2.3-7.9); NEUT % 78.9 % (47.0-73.0); PLATELET COUNT AUTOMATED 212 10*3/uL (130-400); RED BLOOD COUNT 3.96 10*6/uL (4.50-5.90); RED CELL DISTRI WIDTH 13.2 % (0-14.5)
[2020-11-30 14:35] LABS: ACT PARTIAL THROMBO TIME 41.5 SECONDS (20.0-32.1); INTERNATIONAL NORM RATIO 2.3 (2.0-3.5)
[2020-11-30 14:43] LABS: BUN 20 mg/dl (7-24); CHLORIDE 104 mmol/L (98-107); CREATININE 1.04 mg/dL (0.70-1.30); POTASSIUM 4.3 mmol/L (3.5-5.1); SODIUM 137 mmol/L (136-145)
[2020-11-30 19:05] LABS: TROPONIN I < 0.015 ng/ml (<0.045)
[2020-11-30 21:45] LABS: HEMATOCRIT 36.4 % (42.0-52.0); MEAN CELL VOLUME 95.3 fl (80.0-94.0); MEAN CORPUSCULAR HGB 30.6 pg (27.0-31.0); MEAN CORPUSCULAR HGB CONC 32.1 g/dl (33.0-37.0); MEAN PLATELET VOLUME 9.5 fl (9.6-12.3); NUCLEATED RED BLOOD CELL 0.2 % (0.0-0.0); PLATELET COUNT AUTOMATED 173 10*3/uL (130-400); RED BLOOD COUNT 3.82 10*6/uL (4.50-5.90); RED CELL DISTRI WIDTH 13.3 % (0-14.5); WHITE BLOOD COUNT 8.1 10*3/uL (4.8-10.8)
[2020-11-30 22:00] LABS: CREATININE 1.41 mg/dL (0.70-1.30)
[2020-11-30 22:06] LABS: BURR CELLS FEW; PLATELET SUFFICIENCY NORMAL (NORMAL); TOTAL CELLS COUNTED 100 #CELLS
[2020-12-01] VITALS (22 sets, daily range): BP systolic 76–117; BP diastolic 43–58
[2020-12-01] MEDS ORDERED: JANTOVEN1 MG PO (03:17)
[2020-12-01] MEDS ORDERED: AQUAPHOR WITH N50 GM T (03:21)
[2020-12-01 05:47] LABS: ALBUMIN 2.6 gm/dl (3.1-4.5); CREATININE 1.52 mg/dL (0.70-1.30); POTASSIUM 4.3 mmol/L (3.5-5.1); TOTAL PROTEIN 6.2 gm/dL (6.4-8.2)
[2020-12-01 06:12] LABS: HEMATOCRIT 35.2 % (42.0-52.0); MEAN CORPUSCULAR HGB 30.6 pg (27.0-31.0); MEAN CORPUSCULAR HGB CONC 31.5 g/dl (33.0-37.0); MEAN PLATELET VOLUME 10.3 fl (9.6-12.3); NUCLEATED RED BLOOD CELL 0.1 % (0.0-0.0); PLATELET COUNT AUTOMATED 187 10*3/uL (130-400); RED BLOOD COUNT 3.63 10*6/uL (4.50-5.90); RED CELL DISTRI WIDTH 13.4 % (0-14.5); WHITE BLOOD COUNT 23.4 10*3/uL (4.8-10.8)
[2020-12-01 07:09] LABS: PLATELET SUFFICIENCY NORMAL (NORMAL); TOTAL CELLS COUNTED 100 #CELLS
== END 2020-12-01 09:00 | disposition short-term general hospital (02) | DRG 280 ==
LOC: ED 13:36 → EDHOLD 18:39 → 4E 12-01 00:04 → ICCU 12-01 02:15
PROVIDERS: Emergency Medicine; Internal Medicine; ADMIT Internal Medicine; ATTEND Internal Medicine
DX: I21.4 Non-ST elevation (NSTEMI) myocardial infarction (principal); N17.0 Acute kidney failure with tubular necrosis; E43 Unspecified severe protein-calorie malnutrition; J96.00 Acute respiratory failure, unspecified whether with hypoxia or hypercapnia; I48.20 Chronic atrial fibrillation, unspecified; I13.0 Hypertensive heart and chronic kidney disease with heart failure and stage 1 through stage 4 chronic kidney disease, or unspecified chronic kidney disease; R65.10 Systemic inflammatory response syndrome (SIRS) of non-infectious origin without acute organ dysfunction; Z66 Do not resuscitate; Z51.5 Encounter for palliative care; R31.0 Gross hematuria; Z20.822 Contact with and (suspected) exposure to COVID-19; N18.30 Chronic kidney disease, stage 3 unspecified; E11.22 Type 2 diabetes mellitus with diabetic chronic kidney disease; I50.9 Heart failure, unspecified; I95.9 Hypotension, unspecified; E11.65 Type 2 diabetes mellitus with hyperglycemia; E78.2 Mixed hyperlipidemia; F17.210 Nicotine dependence, cigarettes, uncomplicated; E83.42 Hypomagnesemia; R33.8 Other retention of urine; N40.1 Benign prostatic hyperplasia with lower urinary tract symptoms; Z80.8 Family history of malignant neoplasm of other organs or systems; Z88.1 Allergy status to other antibiotic agents; Z79.899 Other long term (current) drug therapy; Z71.6 Tobacco abuse counseling; Z93.59 Other cystostomy status

== ENCOUNTER → 2022-04-10 | Outpatient (CLI) | payer MEDICARE ==
[~2022-04-10] MED LIST changes: +AQUAPHOR WITH N50 GM T; +ELIQUIS5 M1 PO; +JANTOVEN1 MG PO
== END | disposition home or self-care (01) ==
LOC: CT 04-06 14:00
PROVIDERS: ATTEND Internal Medicine
DX: M47.812 Spondylosis without myelopathy or radiculopathy, cervical region (principal); M48.02 Spinal stenosis, cervical region

== ENCOUNTER 2023-01-13 22:02 | Emergency (ER) | payer MEDICARE ==
[~2023-01-13] VITALS: Ht 157.4 cm; Wt 108.9 kg
[2023-01-13 22:12] VITALS: BP 144/69
[2023-01-13 22:26] LABS: BASO % 0.4 % (0.0-1.0); EOS # 0.2 10*3/uL (0.0-0.4); EOS % 2.3 % (1.0-4.0); HEMATOCRIT 41.8 % (42.0-52.0); LYMPH % 12.4 % (27.0-41.0); MEAN CELL VOLUME 95.2 fl (80.0-94.0); MEAN CORPUSCULAR HGB 29.8 pg (27.0-31.0); MEAN CORPUSCULAR HGB CONC 31.3 g/dl (33.0-37.0); MEAN PLATELET VOLUME 9.6 fl (9.6-12.3); MONO # 0.8 10*3/uL (0.1-1.0); NEUT # 6.2 10*3/uL (2.3-7.9); NEUT % 74.5 % (47.0-73.0); PLATELET COUNT AUTOMATED 238 10*3/uL (130-400); RED BLOOD COUNT 4.39 10*6/uL (4.50-5.90); RED CELL DISTRI WIDTH 15.1 % (0-14.5); WHITE BLOOD COUNT 8.3 10*3/uL (4.8-10.8)
[2023-01-13 22:38] LABS: INTERNATIONAL NORM RATIO 1.1 (2.0-3.5)
[2023-01-13 22:47] LABS: ALKALINE PHOSPHATASE 95 U/L (46-116); BUN 23 mg/dl (9-23); CHLORIDE 106 mmol/L (98-107); LIPASE 26 U/L (12-53); POTASSIUM 4.2 mmol/L (3.4-5.1); SGPT/ALT 11 U/L (5-49); TOTAL PROTEIN 7.9 gm/dL (6.0-8.0)
[2023-01-14 01:30] LABS: BILIRUBIN Negative (Negative); BLOOD 2+ (Negative); CLARITY Turbid (Clear); COLOR Yellow (Yellow); GLUCOSE Negative (Negative); KETONE Negative (Negative); LEUKO ESTERASE 3+ (Negative); NITRITE Positive (Negative); SPECIFIC GRAVITY >= 1.030 (1.001-1.030)
[2023-01-14 01:34] LABS: PH 8.5 (4.5-8.0)
[2023-01-14 02:01] LABS: BACTERIA 4+; RBC 21-30 rbc/hpf (0-2); TRIP PHOS CRYSTALS 4+; WBC 41-50 wbc/hpf (0-5)
[2023-01-14] MEDS ORDERED: VIBRAMYCIN100 MG PO (02:46)
== END 2023-01-14 03:29 ==
LOC: ED 22:02
PROVIDERS: Internal Medicine
DX: S01.01XA Laceration without foreign body of scalp, initial encounter (principal); J18.9 Pneumonia, unspecified organism; N39.0 Urinary tract infection, site not specified; F03.90 Unspecified dementia, unspecified severity, without behavioral disturbance, psychotic disturbance, mood disturbance, and anxiety; Z88.1 Allergy status to other antibiotic agents; F17.200 Nicotine dependence, unspecified, uncomplicated; W19.XXXA Unspecified fall, initial encounter; Y93.89 Activity, other specified; Y92.129 Unspecified place in nursing home as the place of occurrence of the external cause; Y99.8 Other external cause status